=== PATIENT | male | born 1935 | race Caucasian/White ===

== ENCOUNTER → 2016-12-28 | Outpatient (CLI) | payer MEDICARE, OTHER | LOC: M WUC 09:43 | PROVIDERS: ATTEND Nurse Practitioner Women's Health | DX: R97.20 Elevated prostate specific antigen [PSA] (principal); E11.9 Type 2 diabetes mellitus without complications ==

== ENCOUNTER → 2016-12-28 | Outpatient (CLI) | payer MEDICARE, OTHER ==
[2016-12-28 13:35] LABS: MEAN CORPUSCULAR HEMOGLOBIN 32.1 pg (27.0-33.0); MEAN CORPUSCULAR HGB CONC 33.3 g/dl (32.0-36.5); MEAN CORPUSCULAR VOLUME 96.4 fl (80.0-96.0); RED CELL DISTRIBUTION WIDTH 13.4 % (11.5-14.5); WHITE BLOOD COUNT 6.1 K/mm3 (4.0-10.0)
[2016-12-28 13:52] LABS: ALBUMIN 3.5 GM/DL (3.2-5.2); ALBUMIN/GLOBULIN RATIO 1.03 (1.00-1.93); BILIRUBIN,TOTAL 0.7 MG/DL (0.2-1.0); CALCIUM LEVEL 9.5 MG/DL (8.8-10.2); CREATININE FOR GFR 1.5 MG/DL (0.70-1.30); GLOMERULAR FILTRATION RATE 47.7 (>35); TOTAL PROTEIN 6.9 GM/DL (6.4-8.2)
[2016-12-28 13:58] LABS: POTASSIUM SERUM 5.3 MEQ/L (3.5-5.1)
== END ==
LOC: M WUC 09:46
PROVIDERS: ATTEND Nurse Practitioner Adult Health
DX: E11.9 Type 2 diabetes mellitus without complications (principal)

== ENCOUNTER → 2017-10-11 | Outpatient (REF) | payer MEDICARE, OTHER ==
[2017-10-11 18:14] LABS: ESTIMATED AVERAGE GLUCOSE 180 MG/DL (60-110); HEMOGLOBIN A1c 7.9 %
[2017-10-11 18:28] LABS: ALBUMIN 3.5 GM/DL (3.2-5.2); ALKALINE PHOSPHATASE 73 U/L (45-117); ALT/SGPT 18 U/L (12-78); ANION GAP 4 MEQ/L (8-16); AST/SGOT 17 U/L (7-37); BILIRUBIN,TOTAL 0.4 MG/DL (0.2-1.0); BLOOD UREA NITROGEN 22 MG/DL (7-18); CALCIUM LEVEL 9.3 MG/DL (8.8-10.2); CARBON DIOXIDE LEVEL 28 MEQ/L (21-32); CHLORIDE LEVEL 106 MEQ/L (98-107); CHOLESTEROL LEVEL 142 MG/DL (<200); CHOLESTEROL RISK RATIO 3.155 (<5); CREATININE FOR GFR 1.57 MG/DL (0.70-1.30); GLOMERULAR FILTRATION RATE 45.1 (>35); GLUCOSE, FASTING 116 MG/DL (70-100); HDL CHOLESTEROL 45 MG/DL (>40); LDL CHOLESTEROL 66.4 MG/DL (<100); NON-HDL-C 97 MG/DL; POTASSIUM SERUM 5.1 MEQ/L (3.5-5.1); SODIUM LEVEL 138 MEQ/L (136-145); TOTAL PROTEIN 7.4 GM/DL (6.4-8.2); TRIGLYCERIDES LEVEL 153 MG/DL (<150)
[2017-10-11 19:22] LABS: MAU/CREAT RATIO 8.2 MCG/MG (0.0-30.0)
== END ==
LOC: M SFHCPLAZ 15:04
DX: E11.9 Type 2 diabetes mellitus without complications (principal); E78.00 Pure hypercholesterolemia, unspecified
CPT/HCPCS: 80053

== ENCOUNTER → 2018-01-04 | Outpatient (CLI) | payer MEDICARE ==
[2018-01-04 14:10] LABS: PROSTATIC SPECIFIC AG MONITOR 1.69 NG/ML (< 4.0)
== END ==
LOC: M WUC 08:34
DX: R97.20 Elevated prostate specific antigen [PSA] (principal)
CPT/HCPCS: 84153

== ENCOUNTER → 2018-04-14 | Outpatient (CLI) | payer MEDICARE, OTHER ==
[2018-04-14 13:33] LABS: ESTIMATED AVERAGE GLUCOSE 163 MG/DL (60-110); HEMOGLOBIN A1c 7.3 %
[2018-04-14 16:42] LABS: ALBUMIN 3.1 GM/DL (3.2-5.2); ALBUMIN/GLOBULIN RATIO 0.84 (1.00-1.93); ALKALINE PHOSPHATASE 78 U/L (45-117); ALT/SGPT 17 U/L (12-78); ANION GAP 10 MEQ/L (8-16); AST/SGOT 17 U/L (7-37); BILIRUBIN,TOTAL 0.8 MG/DL (0.2-1.0); BLOOD UREA NITROGEN 19 MG/DL (7-18); CALCIUM LEVEL 8.9 MG/DL (8.8-10.2); CARBON DIOXIDE LEVEL 24 MEQ/L (21-32); CHLORIDE LEVEL 104 MEQ/L (98-107); CHOLESTEROL LEVEL 117 MG/DL (<200); CREATININE FOR GFR 1.54 MG/DL (0.70-1.30); GLOMERULAR FILTRATION RATE 46.2 (>35); GLUCOSE, FASTING 102 MG/DL (70-100); HDL CHOLESTEROL 39 MG/DL (>40); LDL CHOLESTEROL 61 MG/DL (<100); NON-HDL-C 78 MG/DL; POTASSIUM SERUM 4.8 MEQ/L (3.5-5.1); SODIUM LEVEL 138 MEQ/L (136-145); TOTAL PROTEIN 6.8 GM/DL (6.4-8.2); TRIGLYCERIDES LEVEL 85 MG/DL (<150)
== END ==
LOC: M WUC 08:49
DX: E11.9 Type 2 diabetes mellitus without complications (principal); E78.00 Pure hypercholesterolemia, unspecified
CPT/HCPCS: 84443

== ENCOUNTER 2018-08-15 07:27 | Inpatient (IN) | payer MEDICARE, OTHER ==
[~2018-08-15] VITALS: Ht 180.3 cm; Wt 100.9 kg
[2018-08-15] MEDS ORDERED: FINA5TAB2 PO (07:49)
[2018-08-15] MEDS ORDERED: JANU50TA4 PO (07:49)
[2018-08-15] MEDS ORDERED: LOVA40TA PO (07:49)
[2018-08-15] MEDS ORDERED: HUMA75VL SC ×2 (07:49→10:23)
[2018-08-15] MEDS ORDERED: ACETAMINOPHEN 325 MG TAB PO ONE (08:00)
--- NOTE | 2018-08-15 08:43 | REP ---
Clinical: Cough and fever. Technique: AP and lateral. Findings: Mediastinum and cardiac silhouette are unremarkable. Lung powell demonstrate chronic-appearing changes. No focal consolidation, effusion, or pneumothorax. Skeletal structures demonstrate age-related changes. Impression: Chronic-appearing changes. No obvious acute cardiopulmonary process. Electronically Signed by Domingo Montgomery MD 08/15/2018 08:35 A
[2018-08-15 08:48] LABS: BASO % 0.2 % (0.0-1.0); HEMOGLOBIN 12.9 g/dl (13.5-17.5); LYMPH # 0.9 10^3/uL (1.5-4.5); LYMPH % 11.4 % (24.0-44.0); MEAN CORPUSCULAR HEMOGLOBIN 30.6 pg (27.0-33.0); MEAN CORPUSCULAR HGB CONC 33.1 g/dl (32.0-36.5); MEAN CORPUSCULAR VOLUME 92.6 fl (80.0-96.0); MONO # 1.4 10^3/uL (0.0-0.8); MONO % 16.7 % (0.0-5.0); NEUTROPHILS # 5.8 10^3/uL (1.8-7.7); NEUTROPHILS % 71.2 % (36.0-66.0); PLATELET COUNT, AUTOMATED 154 10^3/uL (150-450); RED BLOOD COUNT 4.21 10^6/uL (4.30-6.10); WHITE BLOOD COUNT 8.1 10^3/uL (4.0-10.0)
--- NOTE | 2018-08-15 08:48 | REP ---
CT Head without contrast HISTORY: Syncope COMPARISON: None Areas of decreased attenuation are present in the periventricular white matter. This represents small-vessel ischemic disease. There is no intraparenchymal hemorrhage, acute infarct, mass or midline shift. The ventricular system and cortical sulci are dilated consistent with minimal volume loss. There is no extra cerebral collection. There is no fracture. The visualized sinuses are clear. IMPRESSION: 1. Small vessel ischemic disease. 2. Minimal volume loss. Electronically Signed by Maxwell Macedo MD 08/15/2018 08:39 A
--- NOTE | 2018-08-15 08:53 | REP ---
CT cervical spine without contrast HISTORY: Syncope COMPARISON: None There is no acute fracture or subluxation. Disc bulges are present at the C3-4 and C4-5 levels. Disc bulges with associated osteophyte formation are present at the C5-6 and C6-7 levels. There is minimal to mild narrowing of the spinal canal. Uncinate process and/or facet hypertrophy are present at the C2-3 through C7-T1 levels. These findings produce minimal to moderate narrowing of the neural foramina. The C3-4 through C6-7 intervertebral discs are decreased in height consistent with disc degeneration. IMPRESSION: 1. There is no acute fracture or subluxation. 2. There is cervical spondylosis at the C2-3 through C7-T1 levels. Electronically Signed by Maxwell Macedo MD 08/15/2018 08:44 A
[2018-08-15 09:00] LABS: INR 1.13; PROTHROMBIN TIME 14.7 SECONDS (12.1-14.4)
[2018-08-15] MEDS: ENOXAPARIN 40 MG/0.4 ML SYRINGE (J1650) SC SCH (09:00)
[2018-08-15 09:16] LABS: CALCIUM LEVEL 8.5 MG/DL (8.8-10.2); CREATININE FOR GFR 1.76 MG/DL (0.70-1.30); GLOMERULAR FILTRATION RATE 39.6 (>35); INFLUENZA A AMPLIFICATION POSITIVE (NEGATIVE); INFLUENZA B AMPLIFICATION NEGATIVE (NEGATIVE); MAGNESIUM LEVEL 1.7 MG/DL (1.8-2.4); MB/CK RELATIVE INDEX 0.57 (< OR =4); POTASSIUM SERUM 4.7 MEQ/L (3.5-5.1); THYROID STIMULATING HORMONE 1.19 uIU/ML (0.358-3.740); TROPONIN I 0.02 NG/ML (< 0.10)
[2018-08-15] MEDS ORDERED: OSELTAMIVIR PHOSPHATE 75 MG CAP (TAMIFLU) PO ONE (09:30)
[2018-08-15] MEDS ORDERED: NS 1,000 ML IV SCH (09:45)
[2018-08-15] MEDS ORDERED: ACETAMINOPHEN TAB 650MG DOSE (2X325MG) PO PRN (10:15)
[2018-08-15] MEDS ORDERED: RAMI1CAP22 PO (10:23)
[2018-08-15] MEDS ORDERED: ASPI1TAB15 PO (10:23)
[2018-08-15] MEDS ORDERED: REFR1DRO8 OU (10:23)
[2018-08-15] MEDS ORDERED: FISH7.5C PO ×2 (10:23)
[2018-08-15] MEDS ORDERED: SITA50TAB PO (10:23)
[2018-08-15] MEDS ORDERED: VITMTA PO (10:23)
[2018-08-15] MEDS ORDERED: MAGN1TAB25 PO (10:23)
[2018-08-15] MEDS ORDERED: GLUCAGON FOR INJ 1 MG VIAL (J1610) SC PRN (10:30)
[2018-08-15] MEDS ORDERED: GLUCOSE 4 GM CHEW TABLET PO PRN (10:30)
[2018-08-15] MEDS ORDERED: DEXTROSE 50% 50 ML SYRINGE IV PRN (10:30)
[2018-08-15] MEDS ORDERED: MAG SULF 1GM/100ML (MAG RUN) 1 GM in APPROPRIATE DILUENT 1 EA IV ONE (11:00)
[2018-08-15 11:26] LABS: ALBUMIN 3.3 GM/DL (3.2-5.2); BILIRUBIN,DIRECT 0.2 MG/DL (0.0-0.2); BILIRUBIN,TOTAL 0.5 MG/DL (0.2-1.0); TOTAL PROTEIN 7.6 GM/DL (6.4-8.2)
[2018-08-15 12:29] VITALS: BP 143/67
[2018-08-15] MEDS: guaiFENesin ER 600 MG TAB PO SCH ×2 (13:12→20:29)
[2018-08-15] MEDS: NS 1,000 ML IV SCH (13:13)
[2018-08-15] MEDS: IBUPROFEN 400 MG TAB PO SCH ×2 (13:14→20:29)
[2018-08-15] MEDS: HumaLOG INSULIN (NovoLOG) PER UNIT SC SCH ×3 (13:14→20:30)
[2018-08-15 14:00] VITALS: BP 128/61
[2018-08-15] MEDS ORDERED: NS 1,000 ML IV ONE (15:00)
[2018-08-15 15:17] VITALS: BP_SYST 109; BP_SYST 120; BP_SYST 122; BP_DIAS 53; BP_DIAS 54; BP_DIAS 60
--- NOTE | 2018-08-15 16:06 | HPE ---
DATE OF ADMISSION: 08/15/2018 PRIMARY CARE PROVIDER: Miriam Gould NP MEDICATION TECHNICIAN: Dr. Jimenez CHIEF COMPLAINT: Cough and sore throat. HISTORY OF PRESENT ILLNESS: The patient is an 82-year-old man who lives alone. He is . His one year ago. He had been feeling in his usual state of health until Tuesday. He began to feel suddenly very weak and tired. He shortly thereafter developed a cough and sore throat. He tells me that he was sitting in his kitchen and had an episode where he felt so weak that he collapsed to the floor. He does not think that he lost his consciousness or that he was down for very long but can not provide me with any further details. He is able to tell me that prior to the episode he only felt weakness. He denies vertigo, palpitations, bowel or bladder incontinence. No associated or prodromal chest pressure or shortness of breath and he tells me that following the episode he went back to feeling his same ill state he has had for the last two days. He denies any knowledge of any sick contacts or recent travel. PAST MEDICAL HISTORY: 1. Type 2 diabetes. 2. Hypertension. 3. Chronic kidney disease. 4. Diverticulosis. 5. Benign prostatic hypertrophy (BPH). 6. Macular degeneration. ALLERGIES: No known drug allergies. HOME MEDICATIONS: - aspirin 81 mg daily - finasteride 5 mg daily - insulin 75/25 30 units subcutaneous daily - lovastatin - multivitamin one tablet daily - Losec 40 mg daily - [place]-3 polyunsaturated fatty acids, fish oil 3 grams daily - Januvia 50 mg daily - Refresh tears one drop in each eye at bedtime - magnesium oxide 400 mg by mouth twice a day - ramipril 2.5 mg daily FAMILY HISTORY: Noncontributory. REVIEW OF SYSTEMS: Negative other than in the history of present illness (HPI). PAST SURGICAL HISTORY: 1. Tonsillectomy in 1943. 2. Hernia repair in 1979. 3. Herniorrhaphy in 1984. 4. Ruptured appendix in 2007. 5. Ophthalmic surgery for macular degeneration in 2008. 6. Vasectomy. 7. Bilateral cataract extraction in 2011. SOCIAL HISTORY: He lives alone but has two friends who accompany him to the emergency room who are his neighbors who are very involved in his care. 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 OBJECTIVE: VITAL SIGNS: Maximum temperature (T-max) 101.3, temperature current 98.6, pulse 75, respiratory rate is 18, blood pressure 138/65, oxygen saturation 96% on room air. GENERAL: He is a very pleasant, elderly, man laying in a stretcher at a 30-degree angle. He appears tired but he is awake, alert and oriented times three, speaking in complete sentences, in no acute distress. He is not tachypneic. NEUROLOGIC: Cranial nerves II-XII are grossly intact. HEENT: He has mildly dry mucous membranes. No elevation in his central venous pressure (CVP). CARDIOVASCULAR: S1, S2. He is not tachycardiac. RESPIRATORY: Actually fairly clear bilaterally. ABDOMEN: Obese. Bowel sounds are present. The abdomen is soft. EXTREMITIES: No clubbing, cyanosis, or edema. LABORATORY STUDIES: WBC 8.1, hemoglobin 12.9, platelet count is 154. Chemistry Panel: Sodium 130, potassium 4.7, chloride 98, bicarbonate 24, BUN 25, creatinine 1.7, baseline appears to be close to 1.5, lactic acid 2.6, magnesium 1.7, CK is 192. A set of cardiac enzymes as well as his TSH are within normal limits. He has INR of 1.1. UA is fairly unremarkable. Microbiology: Blood cultures are drawn and pending. Influenza swab is positive for influenza A. He did have a CT scan of his head which reveals small vessel ischemic disease, minimal volume loss. He also had a cervical spine CT that revealed no acute fracture or subluxation. There was cervical spondylosis at C2-3 through C7-T1 levels. He did have a chest x-ray that revealed chronic-appearing changes. No obvious acute cardiopulmonary process. ASSESSMENT AND PLAN: This is an 82-year-old man with influenza A. 1. Influenza A. The patient did have a fall at home. The etiology is unclear. It does not sound to be chan syncope to me. There was no prodromal symptoms. No definite loss of consciousness. Although he may have been down on the ground due to weakness, he was able to rise himself and continue with his activities. There were no concerning prodromal symptoms. I will monitor him on telemetry for 24 hours. He does not have any focal deficits. He does not have any palpitations, chest pressure, or shortness of breath. His volume status appears to be definitely not overloaded. As such, I see no indication for an MRI or an echocardiogram. In terms of his influenza A, we will renally dose his Tamiflu and admit him for close observation. We will have physical therapy and occupational therapy evaluate him. 2. Hypovolemic hyponatremia. We will provide him IV fluids. He did have an elevated lactic acid which may be related to increased work of breathing. He is comfortable on room air. We will continue to trend his lactic acid and his hyponatremia with laboratories. 3. Hypomagnesemia. We will replete. 4. Elevated creatine kinase, possibly secondary to being down, possibly secondary to influenza with some muscle aches. We will provide him with gentle IV fluids and continue to monitor. 5. Anemia, very mild. I suspect this will drop somewhat with the fluid resuscitation he is to receive overnight. We will continue to monitor closely. I will also check orthostatics. 6. Chronic kidney disease, relatively stable. There may be some mild elevation today. We will monitor his laboratories tomorrow after he has received some fluids. 7. Benign prostatic hypertrophy (BPH). We will continue his home Flomax. 8. Hypertension. I will actually hold his ramipril for the time being and watch his blood pressure closely and reinitiate as needed. 9. Dyslipidemia. Continue with his Lopid. 10. Insulin-dependent diabetes. We will place him on his insulin 70/25 as well as sliding scale with fingerstick coverage. 11. Possible rhabdomyolysis 12. Lactic acidosis con't to trend as treatment procedes DISPOSITION: The patient is admitted to the medical/surgical floor with remote telemetry. We will continue to follow his status closely. KELSIE
[2018-08-15] MEDS: MULTIVITAMINS/MINERALS THERAP 1 TAB PO SCH (17:32)
[2018-08-15] MEDS: FINASTERIDE 5 MG TAB PO SCH (17:32)
[2018-08-15] MEDS: ASPIRIN 81 MG ENTERIC TAB PO SCH (17:32)
[2018-08-15] MEDS: SIMVASTATIN 40 MG TAB PO SCH (20:29)
[2018-08-15] MEDS: OSELTAMIVIR PHOSPHATE 30MG CAPSULE PO SCH (20:29)
[2018-08-15 20:30] VITALS: BP_SYST 116; BP_SYST 120; BP_SYST 126; BP_DIAS 56; BP_DIAS 60; BP_DIAS 64
[2018-08-15] MEDS: OMEGA-3 1000MG CAPSULE PO SCH (21:36)
[2018-08-15 22:00] VITALS: BP 145/59
[2018-08-16] MEDS: IBUPROFEN 400 MG TAB PO SCH ×3 (05:40→21:48)
[2018-08-16 06:00] VITALS: BP 155/62
[2018-08-16 06:13] VITALS: BP_SYST 148; BP_SYST 152; BP_SYST 155; BP_DIAS 60; BP_DIAS 62
[2018-08-16 06:24] LABS: HEMATOCRIT 37.6 % (42.0-52.0); HEMOGLOBIN 12.1 g/dl (13.5-17.5); MEAN CORPUSCULAR HEMOGLOBIN 29.9 pg (27.0-33.0); MEAN CORPUSCULAR HGB CONC 32.2 g/dl (32.0-36.5); MEAN CORPUSCULAR VOLUME 92.8 fl (80.0-96.0); PLATELET COUNT, AUTOMATED 126 10^3/uL (150-450); RED BLOOD COUNT 4.05 10^6/uL (4.30-6.10); WHITE BLOOD COUNT 8.5 10^3/uL (4.0-10.0)
[2018-08-16 07:17] LABS: CALCIUM LEVEL 8.2 MG/DL (8.8-10.2); CREATININE FOR GFR 1.55 MG/DL (0.70-1.30); GLOMERULAR FILTRATION RATE 45.8 (>35); POTASSIUM SERUM 4.6 MEQ/L (3.5-5.1)
[2018-08-16 07:42] LABS: MAGNESIUM LEVEL 1.9 MG/DL (1.8-2.4)
[2018-08-16] MEDS: ENOXAPARIN 40 MG/0.4 ML SYRINGE (J1650) SC SCH (09:06)
[2018-08-16] MEDS: guaiFENesin ER 600 MG TAB PO SCH ×2 (09:06→21:48)
[2018-08-16] MEDS: OSELTAMIVIR PHOSPHATE 30MG CAPSULE PO SCH ×2 (09:06→21:48)
[2018-08-16] MEDS: MULTIVITAMINS/MINERALS THERAP 1 TAB PO SCH (09:06)
[2018-08-16] MEDS: OMEGA-3 1000MG CAPSULE PO SCH ×2 (09:06→21:48)
[2018-08-16] MEDS: FINASTERIDE 5 MG TAB PO SCH (09:06)
[2018-08-16] MEDS: ASPIRIN 81 MG ENTERIC TAB PO SCH (09:06)
[2018-08-16] MEDS: HumaLOG 75/25 MIX INSULIN PER UNIT SC SCH (09:07)
[2018-08-16] MEDS: HumaLOG INSULIN (NovoLOG) PER UNIT SC SCH ×4 (09:08→21:00)
[2018-08-16] MEDS ORDERED: MAG SULF 1GM/100ML (MAG RUN) 1 GM in APPROPRIATE DILUENT 1 EA IV ONE (11:15)
[2018-08-16 11:42] VITALS: BP 135/66
[2018-08-16 14:00] VITALS: BP 143/62
[2018-08-16] MEDS: NS 1,000 ML IV SCH (14:18)
--- NOTE | 2018-08-16 16:25 | IPNPDOC ---
Date Seen The patient was seen on 08/16/18. Progress Note SUBJECTIVE: Patient tells me that he feels better and his energy level is up but certainly nowhere near his baseline OBJECTIVE PHYSICAL EXAMINATION: VITAL SIGNS: Please see below. GENERAL: Pleasant elderly man sitting in a chair he appears more energetic today no acute distress HEENT: Cranial nerves II through XII grossly intact CARDIOVASCULAR: S1-S2 regular. RESPIRATORY: Clear to auscultation bilaterally. ABDOMINAL: Obese bowel sounds present abdomen soft EXTREMITIES: No clubbing cyanosis or edema LABORATORY DATA, IMAGING STUDIES, MICROBIOLOGY: Please see below. DVT prophylaxis ordered?: Lovenox ASSESSMENT AND PLAN: This is an 82-year-old man with influenza A. 1. Influenza A. The patient did have a fall at home. The etiology is unclear the patient does have some NSVT on his telemetry continue to monitor closely. Although he may have been down on the ground due to weakness, he was able to rise himself and continue with his activities. There were no concerning prodromal symptoms. In terms of his influenza A, we will renally dose his Tamiflu and admit him for close observation. We will have physical therapy and occupational therapy continue to work with him he is currently not safe 2. Hypovolemic hyponatremia. We will provide him IV fluids does appear to be improving with gentle hydration. He did have an elevated lactic acid which may be related to increased work of breathing. He is comfortable on room air once again today. 3. Hypomagnesemia. We will replete as needed. 4. Elevated creatine kinase, possibly secondary to being down, possibly se condary to influenza with some muscle aches. We will continue to provide him with gentle IV fluids and continue to monitor. 5. Anemia, : stable and mild. 6. Chronic kidney disease, there may have been some mild elevation in his creatinine upon admission it does appear to be improving with gentle hydration as well s. 7. Benign prostatic hypertrophy (BPH). We will continue his home Flomax. 8. Hypertension. I will hold his ramipril for the time being and watch his blood pressure closely and reinitiate as needed. 9. Dyslipidemia. Continue with his Lopid. 10. Insulin-dependent diabetes. We will place him on his insulin 70/25 as well as sliding scale with fingerstick coverage. DISPOSITION: The patient is admitted to the medical/surgical floor with remote telemetry. We will continue to follow his status closely. VS, I&O, 24H, Fishbone Vital Signs/I&O Vital Signs Date Time Temp Pulse Resp B/P (MAP) Pulse Ox O2 Delivery O2 Flow Rate FiO2 08/16/18 14:00 97.8 69 20 143/62 (89) 95 08/15/18 12:00 Room Air I&O- Last 24 Hours up to 6 AM 08/16/18 06:00 Intake Total 2050 ml Output Total 1200 ml Balance 850 ml Laboratory Data 24H LABS Laboratory Tests 2 08/15/18 17:18: Bedside Glucose (Misc Panel) 209H 08/16/18 05:45: Nucleated Red Blood Cells % (auto) 0.0, Anion Gap 7L, Glomerular Filtration Rate 45.8, Blood Urea Nitrogen 29H, Creatinine 1.55H, Sodium Level 132L, Potassium Level 4.6, Chloride Level 101, Carbon Dioxide Level 24, Calcium Level 8.2L, Magnesium Level 1.9, Total Creatine Kinase 1567#H 08/16/18 11:48: Bedside Glucose (Misc Panel) 161H CBC/BMP Laboratory Tests 08/16/18 05:45 Red Blood Count 4.05 L, Mean Corpuscular Volume 92.8, Mean Corpuscular Hemoglobin 29.9, Mean Corpuscular Hemoglobin Concent 32.2, Red Cell Distribution Width 13.0, Calcium Level 8.2 L Microbiology Microbiology 08/15/18 Blood Culture - Preliminary, Resulted No growth after 24 hours . All specim... 08/15/18 Blood Culture - Preliminary, Resulted No growth after 24 hours . All specim... ANDRES LOPEZ MD Aug 16, 2018 16:25
--- NOTE | 2018-08-16 20:26 | ECGEPIP ---
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
[2018-08-16] MEDS: SIMVASTATIN 40 MG TAB PO SCH (21:48)
--- NOTE | 2018-08-16 21:58 | ECGEPIP ---
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 Left axis deviation Low voltages with persistent R waves V5 and V6, and QS inferiorly; Body habitus versus pulmonary disease. R/O prior IWMI No change from 08/15/18 Electronically Signed On 08-16-2018 21:58:21 EST by Jewel Schmid
[2018-08-16 22:00] VITALS: BP 163/82
[2018-08-17] MEDS: IBUPROFEN 400 MG TAB PO SCH (05:38)
[2018-08-17 06:00] VITALS: BP 139/65
[2018-08-17 06:22] LABS: HEMATOCRIT 33.7 % (42.0-52.0); HEMOGLOBIN 11.3 g/dl (13.5-17.5); MEAN CORPUSCULAR HEMOGLOBIN 30.4 pg (27.0-33.0); MEAN CORPUSCULAR HGB CONC 33.5 g/dl (32.0-36.5); MEAN CORPUSCULAR VOLUME 90.6 fl (80.0-96.0); PLATELET COUNT, AUTOMATED 126 10^3/uL (150-450); RED BLOOD COUNT 3.72 10^6/uL (4.30-6.10); WHITE BLOOD COUNT 5.1 10^3/uL (4.0-10.0)
[2018-08-17 06:57] LABS: CALCIUM LEVEL 7.7 MG/DL (8.8-10.2); CREATININE FOR GFR 1.36 MG/DL (0.70-1.30); GLOMERULAR FILTRATION RATE 53.3 (>35)
[2018-08-17] MEDS: ENOXAPARIN 40 MG/0.4 ML SYRINGE (J1650) SC SCH (09:37)
[2018-08-17] MEDS: ASPIRIN 81 MG ENTERIC TAB PO SCH (09:38)
[2018-08-17] MEDS: OMEGA-3 1000MG CAPSULE PO SCH ×2 (09:38→21:35)
[2018-08-17] MEDS: HumaLOG INSULIN (NovoLOG) PER UNIT SC SCH ×4 (09:38→21:00)
[2018-08-17] MEDS: OSELTAMIVIR PHOSPHATE 30MG CAPSULE PO SCH ×2 (09:38→21:35)
[2018-08-17] MEDS: MULTIVITAMINS/MINERALS THERAP 1 TAB PO SCH (09:38)
[2018-08-17] MEDS: guaiFENesin ER 600 MG TAB PO SCH ×2 (09:38→21:35)
[2018-08-17] MEDS: FINASTERIDE 5 MG TAB PO SCH (09:38)
[2018-08-17] MEDS: HumaLOG 75/25 MIX INSULIN PER UNIT SC SCH (09:39)
[2018-08-17] MEDS: ACETAMINOPHEN 500 MG TAB PO SCH ×3 (09:43→21:35)
[2018-08-17] MEDS ORDERED: BENZONATATE 100 MG CAP PO PRN (10:00)
[2018-08-17] MEDS ORDERED: LEVALBUTEROL 1.25 MG/0.5 ML CONCENTRATE NEB INH PRN (10:00)
[2018-08-17 14:00] VITALS: BP 145/70
--- NOTE | 2018-08-17 17:39 | IPNPDOC ---
Text Note Date of Service The patient was seen on 08/17/18. NOTE SUBJECTIVE: Patient is seen and examined at bedside. He states that he feels much better than the day he was admitted. He still feels like he has some wheezing, but overall feels like he has more energy. He does still have some muscle weakness, but denies any fevers, chills, nausea, vomiting, diarrhea. OBJECTIVE VITAL SIGNS: Please see below. GENERAL: Pleasant, elderly male in no acute distress. He is sitting up in a chair. HEENT: Atraumatic, normocephalic. Mucous members are moist. Heart: Regular rate and rhythm; no murmurs, gallops, or rubs RESPIRATORY: Coarse breath sounds bilaterally with mild expiratory wheezes. No rhonchi or rales ABDOMINAL: Obese, positive bowel sounds, soft, no tenderness to palpation. EXTREMITIES: No clubbing cyanosis or edema LABORATORY DATA, IMAGING STUDIES, MICROBIOLOGY: Please see below. DVT prophylaxis ordered?: Lovenox ASSESSMENT AND PLAN: This is an 82-year-old man with influenza A. 1. Influenza A. The patient did have a fall at home. The etiology is unclear the patient does have some NSVT on his telemetry continue to monitor closely. Although he may have been down on the ground due to weakness, he was able to rise himself and continue with his activities. There were no concerning prodromal symptoms. In terms of his influenza A, his Tamiflu is renally dosed, and he is on day #3 of 5. Continues to work with physical and occupational therapy 2. Hypovolemic hyponatremia. We will provide him IV fluids does appear to be improving with gentle hydration. He did have an elevated lactic acid which may be related to increased work of breathing. He is comfortable on room air once again today. Hyponatremia has resolved. 3. Hypomagnesemia. We will replete as needed. 4. Elevated creatine kinase, possibly secondary to being down, possibly secondary to influenza with some muscle aches. We will continue to provide him with gentle IV fluids and continue to monitor. 5. Anemia, stable and mild. 6. Chronic kidney disease, there may have been some mild elevation in his creatinine upon admission it does appear to be improving with gentle hydration as well. 7. Benign prostatic hypertrophy (BPH). We will continue his home Flomax. 8. Hypertension. I will hold his ramipril for the time being and watch his blood pressure closely and reinitiate as needed. 9. Dyslipidemia. Continue with his statin. 10. Insulin-dependent diabetes. We will place him on his insulin 70/25 as well as sliding scale with fingerstick coverage. DISPOSITION: Probable discharge in 24-48 hours, pending clinical improvement and PT/OT VS,Fishbone, I+O VS, Fishbone, I+O Laboratory Tests 08/17/18 05:54 Red Blood Count 3.72 L, Mean Corpuscular Volume 90.6, Mean Corpuscular Hemoglobin 30.4, Mean Corpuscular Hemoglobin Concent 33.5, Red Cell Distribution Width 13.1, Calcium Level 7.7 L Vital Signs Date Time Temp Pulse Resp B/P (MAP) Pulse Ox O2 Delivery O2 Flow Rate FiO2 08/17/18 14:00 98.1 66 18 145/70 (95) 98 08/15/18 12:00 Room Air I&O- Last 24 Hours up to 6 AM 08/17/18 06:00 Intake Total 3220 ml Output Total 2475 ml Balance 745 ml GME ATTESTATION GME ATTESTATION My faculty preceptor for this patient encounter was physically present during t he encounter and was fully available. All aspects of the patient interview, examination, medical decision making process, and medical care plan development were reviewed and approved by the faculty preceptor. The faculty preceptor is aware and concurs with the plan as stated in the body of this note and will attest to such by his/her cosignature. NETO MELVIN DO Aug 17, 2018 17:39
[2018-08-17] MEDS: SIMVASTATIN 40 MG TAB PO SCH (21:35)
[2018-08-17 22:00] VITALS: BP 133/71
[2018-08-18] MEDS: ACETAMINOPHEN 500 MG TAB PO SCH ×3 (05:49→20:26)
[2018-08-18 06:00] VITALS: BP 146/77
[2018-08-18 06:40] LABS: HEMATOCRIT 35.7 % (42.0-52.0); HEMOGLOBIN 11.8 g/dl (13.5-17.5); MEAN CORPUSCULAR HEMOGLOBIN 30.5 pg (27.0-33.0); MEAN CORPUSCULAR HGB CONC 33.1 g/dl (32.0-36.5); MEAN CORPUSCULAR VOLUME 92.2 fl (80.0-96.0); PLATELET COUNT, AUTOMATED 142 10^3/uL (150-450); RED BLOOD COUNT 3.87 10^6/uL (4.30-6.10); WHITE BLOOD COUNT 4.8 10^3/uL (4.0-10.0)
[2018-08-18 07:04] LABS: CALCIUM LEVEL 8.1 MG/DL (8.8-10.2); CREATININE FOR GFR 1.28 MG/DL (0.70-1.30); GLOMERULAR FILTRATION RATE 57.1 (>35); POTASSIUM SERUM 4.5 MEQ/L (3.5-5.1)
[2018-08-18] MEDS: HumaLOG INSULIN (NovoLOG) PER UNIT SC SCH ×4 (07:30→20:27)
[2018-08-18] MEDS: guaiFENesin ER 600 MG TAB PO SCH ×2 (09:00→20:27)
[2018-08-18] MEDS: ASPIRIN 81 MG ENTERIC TAB PO SCH (09:00)
[2018-08-18] MEDS: ENOXAPARIN 40 MG/0.4 ML SYRINGE (J1650) SC SCH (09:01)
[2018-08-18] MEDS: MULTIVITAMINS/MINERALS THERAP 1 TAB PO SCH (09:01)
[2018-08-18] MEDS: OSELTAMIVIR PHOSPHATE 30MG CAPSULE PO SCH ×2 (09:01→20:26)
[2018-08-18] MEDS: FINASTERIDE 5 MG TAB PO SCH (09:01)
[2018-08-18] MEDS: HumaLOG 75/25 MIX INSULIN PER UNIT SC SCH (12:00)
[2018-08-18] MEDS: OMEGA-3 1000MG CAPSULE PO SCH ×2 (12:08→20:26)
[2018-08-18] MEDS: BENZONATATE 100 MG CAP PO SCH ×3 (12:08→20:26)
[2018-08-18 14:00] VITALS: BP 149/79
--- NOTE | 2018-08-18 15:16 | IPNPDOC ---
Text Note Date of Service The patient was seen on 08/18/18. NOTE SUBJECTIVE: Patient is seen and examined at bedside. He states that he has been working well with physical therapy, though he has not attempted stairs yet. He denies any fever, chills, nausea, vomiting, diarrhea, cough, or shortness of breath. He did not sleep well last night, and is requesting that I schedule his cough medicine instead of giving it to him as needed. OBJECTIVE VITAL SIGNS: Please see below. GENERAL: Pleasant, elderly male in no acute distress. He is sitting up in a chair. HEENT: Atraumatic, normocephalic. Mucous members are moist. Heart: Regular rate and rhythm; no murmurs, gallops, or rubs RESPIRATORY: Minimally coarse breath sounds bilaterally with mild expiratory wheezes. No rhonchi or rales ABDOMINAL: Obese, positive bowel sounds, soft, no tenderness to palpation. EXTREMITIES: No clubbing cyanosis or edema LABORATORY DATA, IMAGING STUDIES, MICROBIOLOGY: Please see below. DVT prophylaxis ordered?: Lovenox ASSESSMENT AND PLAN: This is an 82-year-old man with influenza A. 1. Influenza A. The patient did have a fall at home. The etiology is unclear the patient does have some NSVT on his telemetry continue to monitor closely. Although he may have been down on the ground due to weakness, he was able to rise himself and continue with his activities. There were no concerning prodromal symptoms. In terms of his influenza A, his Tamiflu is renally dosed, and he is on day #4 of 5. Continues to work with physical and occupational therapy 2. Hypovolemic hyponatremia. We will provide him IV fluids does appear to be improving with gentle hydration. He did have an elevated lactic acid which may be related to increased work of breathing. He is comfortable on room air once again today. Hyponatremia has resolved. 3. Hypomagnesemia. We will replete as needed. 4. Elevated creatine kinase, possibly secondary to being down, possibly secondary to influenza with some muscle aches. This is trending downward. 5. Anemia, stable and mild. 6. Chronic kidney disease, there may have been some mild elevation in his creat inine upon admission it does appear to be improving. 7. Benign prostatic hypertrophy (BPH). We will continue his home Flomax. 8. Hypertension. I will hold his ramipril for the time being and watch his blood pressure closely and reinitiate as needed. 9. Dyslipidemia. Continue with his statin. 10. Insulin-dependent diabetes. We will place him on his insulin 70/25 as well as sliding scale with fingerstick coverage. DISPOSITION: Possible discharge on Tuesday, pending clinical improvement and PT/OT VS,Fishbone, I+O VS, Fishbone, I+O Laboratory Tests 08/18/18 05:55 Red Blood Count 3.87 L, Mean Corpuscular Volume 92.2, Mean Corpuscular Hemoglobi n 30.5, Mean Corpuscular Hemoglobin Concent 33.1, Red Cell Distribution Width 13.0, Calcium Level 8.1 L Vital Signs Date Time Temp Pulse Resp B/P (MAP) Pulse Ox O2 Delivery O2 Flow Rate FiO2 08/18/18 14:00 98.2 68 20 149/79 (102) 97 08/15/18 12:00 Room Air l I&O- Last 24 Hours up to 6 AM 08/18/18 06:00 Intake Total 2365 ml Output Total 1575 ml Balance 790 ml GME ATTESTATION GME ATTESTATION My faculty preceptor for this patient encounter was physically present during the encounter and was fully available. All aspects of the patient interview, examination, medical decision making process, and medical care plan development were reviewed and approved by the faculty preceptor. The faculty preceptor is aware and concurs with the plan as stated in the body of this note and will atte st to such by his/her cosignature. NETO MELVIN DO Aug 18, 2018 15:16
[2018-08-18] MEDS: LEVALBUTEROL 1.25 MG/0.5 ML CONCENTRATE NEB INH SCH ×3 (16:00→23:46)
[2018-08-18] MEDS: SIMVASTATIN 40 MG TAB PO SCH (20:26)
[2018-08-18 22:00] VITALS: BP 117/59
--- NOTE | 2018-08-18 23:55 | ECHO ---
DATE OF PROCEDURE: 08/16/2018 DATE OF : 1935 AGE: 82 REFERRING PROVIDER: Dr. Ella Rios PATIENT LOCATION: Room 4220 REASON FOR THE ECHOCARDIOGRAM: Abnormal EKG. 2D COMMENTS: 1. Normal left ventricular size, wall thickness, and normal global left ventricular systolic function. The estimated left ventricular systolic ejection fraction is 60-65%. 2. Normal left atrium. The right atrium and the right ventricle were not well visualized. 3. The atrial septum appeared to be normal in limited views. 4. Normal aortic root. 5. Small pericardial effusion noted, no evidence of cardiac tamponade. 6. Mildly calcified aortic valve with normal leaflet excursion. Mildly calcified mitral annulus with normal anterior mitral valve leaflet motion. Normal tricuspid valve. The pulmonic valve appeared to be normal. The proximal pulmonary artery branches were not well visualized. 7. The inferior vena cava was mildly enlarged, central venous pressure might be elevated. DOPPLER: No significant valvular abnormalities detected. Abnormal relaxation pattern was noted across the mitral valve leaflet consistent with features of grade 1 left ventricular diastolic dysfunction. IMPRESSION: 1. Normal global left ventricular systolic function. There were some features of left ventricular diastolic dysfunction manifested by abnormal relaxation. 2. Small pericardial effusion, no evidence of cardiac tamponade. 3. There are features of elevated central venous pressure, the inferior vena cava was mildly enlarged. 4. The right heart chambers were not well visualized.
[2018-08-19] MEDS: LEVALBUTEROL 1.25 MG/0.5 ML CONCENTRATE NEB INH SCH ×5 (04:47→20:29)
[2018-08-19] MEDS: ACETAMINOPHEN 500 MG TAB PO SCH ×3 (05:20→20:50)
[2018-08-19 06:00] VITALS: BP 141/65
[2018-08-19 06:23] LABS: HEMATOCRIT 34.3 % (42.0-52.0); HEMOGLOBIN 11.3 g/dl (13.5-17.5); MEAN CORPUSCULAR HEMOGLOBIN 30.1 pg (27.0-33.0); MEAN CORPUSCULAR HGB CONC 32.9 g/dl (32.0-36.5); MEAN CORPUSCULAR VOLUME 91.5 fl (80.0-96.0); PLATELET COUNT, AUTOMATED 138 10^3/uL (150-450); RED BLOOD COUNT 3.75 10^6/uL (4.30-6.10); WHITE BLOOD COUNT 5.6 10^3/uL (4.0-10.0)
[2018-08-19 06:47] LABS: CALCIUM LEVEL 8.1 MG/DL (8.8-10.2); CREATININE FOR GFR 1.28 MG/DL (0.70-1.30); GLOMERULAR FILTRATION RATE 57.1 (>35); POTASSIUM SERUM 4.2 MEQ/L (3.5-5.1)
[2018-08-19] MEDS: HumaLOG INSULIN (NovoLOG) PER UNIT SC SCH ×4 (10:30→20:50)
[2018-08-19] MEDS: FINASTERIDE 5 MG TAB PO SCH (10:30)
[2018-08-19] MEDS: ASPIRIN 81 MG ENTERIC TAB PO SCH (10:30)
[2018-08-19] MEDS: HumaLOG 75/25 MIX INSULIN PER UNIT SC SCH (10:30)
[2018-08-19] MEDS: guaiFENesin ER 600 MG TAB PO SCH ×2 (10:30→20:49)
[2018-08-19] MEDS: BENZONATATE 100 MG CAP PO SCH ×3 (10:30→20:49)
[2018-08-19] MEDS: OSELTAMIVIR PHOSPHATE 30MG CAPSULE PO SCH ×2 (10:30→20:49)
[2018-08-19] MEDS: MULTIVITAMINS/MINERALS THERAP 1 TAB PO SCH (10:30)
[2018-08-19] MEDS: ENOXAPARIN 40 MG/0.4 ML SYRINGE (J1650) SC SCH (10:30)
[2018-08-19] MEDS: OMEGA-3 1000MG CAPSULE PO SCH ×2 (10:30→20:49)
[2018-08-19 14:00] VITALS: BP 144/65
--- NOTE | 2018-08-19 14:01 | IPNPDOC ---
Text Note Date of Service The patient was seen on 08/19/18. NOTE SUBJECTIVE: Patient is seen and examined at bedside. He is a little more tired today, and had some dizziness overnight, though he slept a lot better with the nebulizer treatments and the Tessalon Perles. He denies any fever, chills, nausea, vomiting, diarrhea, cough, or shortness of breath. OBJECTIVE VITAL SIGNS: Please see below. GENERAL: Pleasant, elderly male in no acute distress. He is sitting up in a chair. HEENT: Atraumatic, normocephalic. Mucous members are moist. Heart: Regular rate and rhythm; no murmurs, gallops, or rubs RESPIRATORY: Minimally coarse breath sounds bilaterally with mild expiratory wheezes. No rhonchi or rales ABDOMINAL: Obese, positive bowel sounds, soft, no tenderness to palpation. EXTREMITIES: No clubbing cyanosis or edema LABORATORY DATA, IMAGING STUDIES, MICROBIOLOGY: Please see below. DVT prophylaxis ordered?: Lovenox ASSESSMENT AND PLAN: This is an 82-year-old man with influenza A. 1. Influenza A. The patient did have a fall at home. The etiology is unclear the patient does have some NSVT on his telemetry continue to monitor closely. Although he may have been down on the ground due to weakness, he was able to ri se himself and continue with his activities. There were no concerning prodromal symptoms. In terms of his influenza A, his Tamiflu is renally dosed, and he is on his last day. He will continue to work with physical and occupational therapy on Tuesday. Dizziness overnight could be related to both the influenza and Tamiflu. His last Tamiflu this today, so we will see if he improves tomorrow. 2. Hypovolemic hyponatremia. We will provide him IV fluids does appear to be improving with gentle hydration. He did have an elevated lactic acid which may be related to increased work of breathing. He is comfortable on room air once again today. Hyponatremia has resolved. 3. Hypomagnesemia. We will replete as needed. 4. Elevated creatine kinase, possibly secondary to being down, possibly secondary to influenza with some muscle aches. This is trending downward. 5. Anemia, stable and mild. 6. Chronic kidney disease, there may have been some mild elevation in his creatinine upon admission it does appear to be improving. 7. Benign prostatic hypertrophy (BPH). We will continue his home Flomax. 8. Hypertension. I will hold his ramipril for the time being and watch his blood pressure closely and reinitiate as needed. 9. Dyslipidemia. Continue with his statin. 10. Insulin-dependent diabetes. We will place him on his insulin 70/25 as well as sliding scale with fingerstick coverage. DISPOSITION: Possible discharge on Tuesday, pending clinical improvement and PT/OT VS,Fishbone, I+O VS, Fishbone, I+O Laboratory Tests 08/19/18 05:56 Red Blood Count 3.75 L, Mean Corpuscular Volume 91.5, Mean Corpuscular Hemoglobin 30.1, Mean Corpuscular Hemoglobin Concent 32.9, Red Cell Distribution Width 12.8, Calcium Level 8.1 L Vital Signs Date Time Temp Pulse Resp B/P (MAP) Pulse Ox O2 Delivery O2 Flow Rate FiO2 08/19/18 06:00 98.2 73 18 141/65 (90) 96 08/15/18 12:00 Room Air I&O- Last 24 Hours up to 6 AM 08/19/18 06:00 Intake Total 1200 ml Output Total 1450 ml Balance -250 ml GME ATTESTATION GME ATTESTATION My faculty preceptor for this patient encounter was physically present during the encounter and was fully available. All aspects of the patient interview, examination, medical decision making process, and medical care plan development were reviewed and approved by the faculty preceptor. The faculty preceptor is aware and concurs with the plan as stated in the body of this note and will attest to such by his/her cosignature. NETO MELVIN DO Aug 19, 2018 14:01
[2018-08-19] MEDS: SIMVASTATIN 40 MG TAB PO SCH (20:49)
[2018-08-19 22:00] VITALS: BP 150/72
[2018-08-20] MEDS: LEVALBUTEROL 1.25 MG/0.5 ML CONCENTRATE NEB INH SCH ×6 (03:05→19:19)
[2018-08-20] MEDS: ACETAMINOPHEN 500 MG TAB PO SCH ×3 (05:33→21:02)
[2018-08-20 06:00] VITALS: BP 139/65
[2018-08-20 06:20] LABS: HEMATOCRIT 33.6 % (42.0-52.0); MEAN CORPUSCULAR HEMOGLOBIN 29.8 pg (27.0-33.0); MEAN CORPUSCULAR HGB CONC 32.7 g/dl (32.0-36.5); MEAN CORPUSCULAR VOLUME 91.1 fl (80.0-96.0); PLATELET COUNT, AUTOMATED 139 10^3/uL (150-450); RED BLOOD COUNT 3.69 10^6/uL (4.30-6.10); WHITE BLOOD COUNT 5.2 10^3/uL (4.0-10.0)
[2018-08-20 06:57] LABS: CALCIUM LEVEL 8.2 MG/DL (8.8-10.2); CREATININE FOR GFR 1.26 MG/DL (0.70-1.30); GLOMERULAR FILTRATION RATE 58.2 (>35); POTASSIUM SERUM 4.6 MEQ/L (3.5-5.1)
[2018-08-20] MEDS: OSELTAMIVIR PHOSPHATE 30MG CAPSULE PO SCH (09:00)
[2018-08-20] MEDS: ENOXAPARIN 40 MG/0.4 ML SYRINGE (J1650) SC SCH (09:00)
[2018-08-20] MEDS: guaiFENesin ER 600 MG TAB PO SCH ×2 (09:00→21:02)
[2018-08-20] MEDS: OMEGA-3 1000MG CAPSULE PO SCH ×2 (09:00→21:02)
[2018-08-20] MEDS: BENZONATATE 100 MG CAP PO SCH ×3 (09:00→21:02)
[2018-08-20] MEDS: ASPIRIN 81 MG ENTERIC TAB PO SCH (09:00)
[2018-08-20] MEDS: MULTIVITAMINS/MINERALS THERAP 1 TAB PO SCH (09:00)
[2018-08-20] MEDS: HumaLOG INSULIN (NovoLOG) PER UNIT SC SCH ×4 (09:30→21:00)
[2018-08-20] MEDS: HumaLOG 75/25 MIX INSULIN PER UNIT SC SCH (09:30)
[2018-08-20] MEDS: FINASTERIDE 5 MG TAB PO SCH (09:33)
[2018-08-20] MEDS ORDERED: DEXTROMETHORPHAN 60MG/10ML SUSP 90ML BTL(DELSYM) PO PRN (12:00)
--- NOTE | 2018-08-20 12:07 | IPNPDOC ---
Text Note Date of Service The patient was seen on 08/20/18. NOTE SUBJECTIVE: Patient is seen and examined at bedside. Complained of increased cough last night. Also that the room was very warm. He was noted to have low grade temp of 100.4 last night. He did walk 3 times yesterday the whole loop of the [place] with AIds and visitors. He feels his legs are stronger. Di did not get much sleep because of the bouts of coughing. OBJECTIVE VITAL SIGNS: Please see below. GENERAL: Pleasant, elderly male in no acute distress. He is sitting up in a chair. HEENT: Atraumatic, normocephalic. Mucous members are moist. Heart: Regular rate and rhythm; no murmurs, gallops, or rubs RESPIRATORY: Minimally coarse breath sounds bilaterally with mild expiratory wheezes. No rhonchi or rales ABDOMINAL: Obese, positive bowel sounds, soft, no tenderness to palpation. EXTREMITIES: No clubbing cyanosis or edema LABORATORY DATA, IMAGING STUDIES, MICROBIOLOGY: Please see below. DVT prophylaxis ordered?: Lovenox ASSESSMENT AND PLAN: This is an 82-year-old man with influenza A. Influenza A. The patient did have a fall at home due to extreme weakness from the influenza. He was initially monitored on TELE and did not have any major events. finished course of Tamiflu Diastolic Dysfunction in echo and possibly elevated central venous pressure. Possibly have mild diastolic chf exacerbation Has cumulative positive balance of 3000ml and his creatinine is below baseline. Pateint may be retaining some fluids. in view of increased cough will give a dose of lasix Hypovolemic hyponatremia. due to dehydration on admission now resolved. Hypomagnesemia. We will replete as needed. Rhabdomyolysis: possibly secondary to being down and secondary to influenza with some muscle aches. resolved. Anemia, stable and mild. Chronic kidney disease stage 3 creatinine better than baseline which leads me to think pateint may be retaining fluids. will give a dose of lasix. Benign prostatic hypertrophy (BPH). We will continue his home Finasteride Hypertension. Bps now rising will restart Ramipril Dyslipidemia. Continue with his statin and fish oil. Insulin-dependent diabetes. We will place him on his own lispro protamine insuli n 70/25 as well as sliding scale with fingerstick coverage. DISPOSITION: Possible discharge on Tuesday, pending clinical improvement and PT/OT VS,Fishbone, I+O VS, Fishbone, I+O Laboratory Tests 08/20/18 06:06 Red Blood Count 3.69 L, Mean Corpuscular Volume 91.1, Mean Corpuscular Hemoglobin 29.8, Mean Corpuscular Hemoglobin Concent 32.7, Red Cell Distribution Width 12.9, Calcium Level 8.2 L Vital Signs Date Time Temp Pulse Resp B/P (MAP) Pulse Ox O2 Delivery O2 Flow Rate FiO2 08/20/18 07:43 100.3 08/20/18 06:00 82 18 139/65 (89) 99 08/15/18 12:00 Room Air I&O- Last 24 Hours up to 6 AM 08/20/18 06:00 Intake Total 2820 ml Output Total 1351 ml Balance 1469 ml NEFTALY WELSH MD Aug 20, 2018 12:07
[2018-08-20] MEDS ORDERED: FUROSEMIDE 40 MG/4 ML VIAL (J1940) IV ONE (13:00)
[2018-08-20 14:00] VITALS: BP 169/76
[2018-08-20] MEDS: SIMVASTATIN 40 MG TAB PO SCH (21:02)
[2018-08-20 22:00] VITALS: BP 161/79
[2018-08-21] MEDS: LEVALBUTEROL 1.25 MG/0.5 ML CONCENTRATE NEB INH SCH ×3 (02:00→14:00)
[2018-08-21] MEDS: ACETAMINOPHEN 500 MG TAB PO SCH ×2 (05:58→15:11)
[2018-08-21 06:00] VITALS: BP 145/73
[2018-08-21 06:48] LABS: HEMATOCRIT 34.9 % (42.0-52.0); HEMOGLOBIN 11.6 g/dl (13.5-17.5); MEAN CORPUSCULAR HEMOGLOBIN 30.1 pg (27.0-33.0); MEAN CORPUSCULAR HGB CONC 33.2 g/dl (32.0-36.5); MEAN CORPUSCULAR VOLUME 90.4 fl (80.0-96.0); PLATELET COUNT, AUTOMATED 160 10^3/uL (150-450); RED BLOOD COUNT 3.86 10^6/uL (4.30-6.10); WHITE BLOOD COUNT 7.6 10^3/uL (4.0-10.0)
[2018-08-21 07:20] LABS: CALCIUM LEVEL 8.2 MG/DL (8.8-10.2); CREATININE FOR GFR 1.34 MG/DL (0.70-1.30); GLOMERULAR FILTRATION RATE 54.2 (>35); POTASSIUM SERUM 4.6 MEQ/L (3.5-5.1)
[2018-08-21] MEDS: HumaLOG 75/25 MIX INSULIN PER UNIT SC SCH (08:12)
[2018-08-21] MEDS: FINASTERIDE 5 MG TAB PO SCH (08:13)
[2018-08-21] MEDS: BENZONATATE 100 MG CAP PO SCH ×2 (08:13→15:11)
[2018-08-21] MEDS: guaiFENesin ER 600 MG TAB PO SCH (08:13)
[2018-08-21] MEDS: ASPIRIN 81 MG ENTERIC TAB PO SCH (08:13)
[2018-08-21] MEDS: HumaLOG INSULIN (NovoLOG) PER UNIT SC SCH ×2 (08:13→12:40)
[2018-08-21] MEDS: MULTIVITAMINS/MINERALS THERAP 1 TAB PO SCH (08:13)
[2018-08-21] MEDS: OMEGA-3 1000MG CAPSULE PO SCH (08:14)
[2018-08-21] MEDS: ENOXAPARIN 40 MG/0.4 ML SYRINGE (J1650) SC SCH (08:14)
[2018-08-21] MEDS ORDERED: LASI20TA3 PO (09:43)
[2018-08-21] MEDS ORDERED: BENZ-18 PO (09:43)
[2018-08-21] MEDS ORDERED: MUCI600T37 PO (09:43)
== END 2018-08-21 16:18 | disposition home or self-care (01) | DRG 193 ==
LOC: M ED 07:27 → EDBD 07:27 → M ED INP 10:13 → M MSPAV 12:36
PROVIDERS: ADMIT Internal Medicine; ATTEND Internal Medicine Nephrology
DX: J10.1 Influenza due to other identified influenza virus with other respiratory manifestations (principal); I50.33 Acute on chronic diastolic (congestive) heart failure; E87.1 Hypo-osmolality and hyponatremia; I47.1 Supraventricular tachycardia; E87.2 Acidosis; I12.9 Hypertensive chronic kidney disease with stage 1 through stage 4 chronic kidney disease, or unspecified chronic kidney disease; E11.9 Type 2 diabetes mellitus without complications; K57.30 Diverticulosis of large intestine without perforation or abscess without bleeding; H35.30 Unspecified macular degeneration; N40.0 Benign prostatic hyperplasia without lower urinary tract symptoms; N18.3 Chronic kidney disease, stage 3 (moderate); Z79.899 Other long term (current) drug therapy; Z79.82 Long term (current) use of aspirin; E83.42 Hypomagnesemia; E78.5 Hyperlipidemia, unspecified

== ENCOUNTER 2018-08-25 14:49 | Inpatient (IN) | payer MEDICARE, OTHER ==
[~2018-08-25] VITALS: Ht 180.3 cm; Wt 102.3 kg
[~2018-08-25 14:49] MED LIST: ASPI1TAB15 PO; BENZ-18 PO; FINA5TAB2 PO; FISH7.5C PO; HUMA75VL SC; JANU50TA4 PO; LASI20TA3 PO; LOVA40TA PO; MAGN1TAB25 PO; MUCI600T37 PO; RAMI1CAP22 PO; REFR1DRO8 OU; SITA50TAB PO; VITMTA PO
[2018-08-25 15:40] LABS: BASO % 0.3 % (0.0-1.0); EOS # 0.1 10^3/uL (0.0-0.50); EOS % 0.7 % (0.0-3.0); HEMATOCRIT 36.4 % (42.0-52.0); HEMOGLOBIN 12.5 g/dl (13.5-17.5); LYMPH # 0.9 10^3/uL (1.5-4.5); LYMPH % 7.8 % (24.0-44.0); MEAN CORPUSCULAR HEMOGLOBIN 30.3 pg (27.0-33.0); MEAN CORPUSCULAR HGB CONC 34.3 g/dl (32.0-36.5); MEAN CORPUSCULAR VOLUME 88.3 fl (80.0-96.0); MONO # 1.5 10^3/uL (0.0-0.8); NEUTROPHILS # 8.9 10^3/uL (1.8-7.7); NEUTROPHILS % 77.6 % (36.0-66.0); PLATELET COUNT, AUTOMATED 285 10^3/uL (150-450); RED BLOOD COUNT 4.12 10^6/uL (4.30-6.10); WHITE BLOOD COUNT 11.5 10^3/uL (4.0-10.0)
[2018-08-25 15:52] LABS: INR 1.01; PROTHROMBIN TIME 13.4 SECONDS (12.1-14.4)
[2018-08-25 15:53] LABS: PARTIAL THROMBOPLASTIN TIME 24.5 SECONDS (25.4-37.6)
[2018-08-25 16:15] LABS: ALT/SGPT 52 U/L (12-78); BLOOD UREA NITROGEN 21 MG/DL (7-18); CARBON DIOXIDE LEVEL 26 MEQ/L (21-32); CHLORIDE LEVEL 100 MEQ/L (98-107); CPK CREATINE PHOSPHOKINASE 182 U/L (39-308); CREATININE FOR GFR 1.44 MG/DL (0.70-1.30); GLOMERULAR FILTRATION RATE 49.9 (>35); GLUCOSE, FASTING 176 MG/DL (70-100); SODIUM LEVEL 133 MEQ/L (136-145)
--- NOTE | 2018-08-25 16:15 | REP ---
CHEST, TWO VIEWS: Two views of the chest are performed. Mild chronic interstitial prominence of the lung bases is stable. No acute infiltrate is seen. Cardiac silhouette is mildly prominent and stable. There is mild calcification of the thoracic aorta. Mediastinal silhouette is unchanged. There are degenerative changes of the spine. IMPRESSION: No acute pulmonary disease with no change since prior study of 08/15/2018. Electronically Signed by Rehan White MD 08/28/2018 12:05 P
[2018-08-25 16:16] LABS: ALBUMIN 2.9 GM/DL (3.2-5.2); BILIRUBIN,DIRECT 0.2 MG/DL (0.0-0.2); BILIRUBIN,TOTAL 0.5 MG/DL (0.2-1.0); FREE T4 1.33 NG/DL (0.76-1.46); MB/CK RELATIVE INDEX 0.71 (< OR =4); TOTAL PROTEIN 6.8 GM/DL (6.4-8.2); TROPONIN I < 0.02 NG/ML (< 0.10)
--- NOTE | 2018-08-25 17:59 | REP ---
CT of the chest without IV contrast: Comparison is 03/26/2010. There is a left lower lobe infiltrate as an interval change. No pleural effusion. There is a 4 mm lung nodule posteromedially in the left lower lobe on image 63, unchanged, likely a granuloma. The prior study there was a second 2 mm left lower lobe lung nodule, not visible today, possibly obscured by the infiltrate. There is a stable calcified granuloma in the right lower lobe, unchanged. There are no pleural effusions. There is no mediastinal lymph node enlargement. The study is insensitive for hilar lymph node enlargement in the absence of IV contrast. There is no axillary lymph node enlargement. The unenhanced thoracic aorta is unremarkable. Cardiac size is normal. There is pericardial thickening versus pericardial effusion measuring up to 4 mm depth, not present on the prior study. The visualized upper abdominal structures demonstrate multiple small gallbladder calculi near the gallbladder neck. There is no gallbladder or biliary duct distension. The visualized hepatic parenchyma, pancreas, spleen and adrenals are unremarkable. Impression: Left lower lobe infiltrate. Stable lower lobe lung nodules as described. Cholelithiasis. Electronically Signed by Rehan Collins MD 08/25/2018 05:50 P
[2018-08-25] MEDS ORDERED: cefTRIAXone SOD 1 GM in D5W MINI-BAG PLUS 50 ML IV ONE (18:30)
[2018-08-25] MEDS ORDERED: VANCOMYCIN HCL 1,000 MG, VIAL MATE ADAPTER 1 EACH in D5W 250 ML IV ONE (18:30)
--- NOTE | 2018-08-25 18:54 | ECGEPIP ---
Stationary ECG Study [facility] - ED Test Date: 2018-08-25 Pat Name: Malu HINSON Department: Room: - Gender: M [employer]: JOHN : 1935 Requested By: CRIS Reed Order Number: [id number] Reading MD: Agustín Najera Measurements Intervals [place] Rate: 71 P: 45 AK: 186 QRS: -34 QRSD: 81 T: 34 QT: 351 QTc: 382 Interpretive Statements SINUS RHYTHM LEFT AXIS DEVIATION LOW QRS VOLTAGE IN EXTREMITY LEADS SIMILAR TO 08/16/18 Electronically Signed On 08-25-2018 18:54:20 EST by Agustín Najera
[2018-08-25] MEDS ORDERED: ASPI1TAB PO (19:46)
[2018-08-25] MEDS ORDERED: TESS100C PO (19:46)
[2018-08-25] MEDS ORDERED: MUCI600T31 PO (19:46)
[2018-08-25] MEDS ORDERED: FURO20TA2 PO (19:46)
[2018-08-25] MEDS ORDERED: ACET-683 PO (19:46)
[2018-08-25] MEDS ORDERED: DEXTROSE 50% 50 ML SYRINGE IV PRN (20:15)
[2018-08-25] MEDS ORDERED: GLUCAGON FOR INJ 1 MG VIAL (J1610) SC PRN (20:15)
[2018-08-25] MEDS ORDERED: GLUCOSE 4 GM CHEW TABLET PO PRN (20:15)
[2018-08-25] MEDS ORDERED: ACETAMINOPHEN TAB 650MG DOSE (2X325MG) PO PRN (20:15)
--- NOTE | 2018-08-25 21:15 | HPE ---
DATE OF ADMISSION: 08/25/2018 PRIMARY CARE PROVIDER: Jadiel Chong MD ATTENDING PHYSICIAN: Katrina Zimmerman MD CHIEF COMPLAINT: Generalized weakness and coughing. HISTORY OF PRESENT ILLNESS: The patient is an 82-year-old white male with several chronic medical conditions listed below, came to the ER for evaluation of worsening coughing and generalized weakness. History is provided by himself as well as by review of the chart. Patient had been hospitalized her recently from August 15 for influenza A infection. He was discharged home on August 23. He states after discharge from hospital he was feeling better actually and he had more energy and he was moving more around. However, he still has a cough which is getting worse gradually and he has a lot of brownish sputum too. But denies fever, no chills. Today he was feeling suddenly very bad, very weak and decided to come to the hospital for full evaluation. In the ER, he had an x-ray as well as CT of the chest done which demonstrated he has left lower lobe pneumonia. So medicine service was called for admission. REVIEW OF SYSTEMS: Denies fever. No chills, no headache, blurry vision. No shortness of breath. Positive cough with brownish sputum. No hemoptysis. No chest pain. No nausea, no vomiting. No abdominal pain. No diarrhea. General weakness. No focal weakness and all other systems reviewed, but negative. PAST MEDICAL HISTORY: 1. Type 2 diabetes. 2. Hypertension. 3. Chronic kidney disease (CKD), stage III. 4. Benign prostatic hypertrophy (BPH). 5. Recent influenza infection. ALLERGIES: No known drug allergies. MEDICATIONS: Are reviewed. PAST SURGICAL HISTORY: Tonsillectomy. Hernia repair. Appendectomy. Vasectomy. SOCIAL HISTORY: Denies tobacco use. Denies alcohol abuse. Denies drug abuse. He lives by himself and he is FULL CODE. FAMILY HISTORY: Reviewed, but noncontributory. PHYSICAL EXAMINATION: VITAL SIGNS: Temperature 97.7, heart rate 72, respiratory rate 20, blood pressure 136/68, and oxygen saturation 95% on room air. GENERAL: He is awake, alert, oriented times three. He is not in acute distress. HEENT: Atraumatic. Pupils equal, round and reactive to light. No jaundice. Extraocular muscles intact. Ears, nose, throat: Normal. Mouth: Mucous moist. Neck: No JVD. No bruits. LUNGS: Clear with left lower basal crackles. HEART: S1, S2, regular. No murmur. ABDOMEN: Soft, bowel sounds positive. Nontender. LOWER EXTREMITIES: No edema in bilateral lower extremities. NEUROLOGICAL: Nonfocal. SKIN: No rash. PSYCHOLOGICAL: No acute psychosis. DIAGNOSTICS AND LAB STUDIES: Include the following: CBC and differential: WBC 11.5, hemoglobin and hematocrit 12.5/36.4, platelets 285. Sodium 133, potassium 5.0, chloride 100, bicarbonate 26, BUN 21, creatinine 1.4. Glucose 176. CT and chest x-ray demonstrate left lower lobe infiltrate. IMPRESSION: 1. Hospital acquired pneumonia. 2. Type 2 diabetes. 3. Hypertension. 4. CKD stage III. 5. Benign prostatic hypertrophy (BPH). PLAN: Patient will be admitted to med-surg floor. I will treat him with IV Zosyn and doxycycline for covering hospital acquired pneumonia. He had a recent negative MRSA screen and will continue most of his home medications.
[2018-08-25] MEDS: HumaLOG INSULIN (NovoLOG) PER UNIT SC SCH (21:29)
[2018-08-25] MEDS: NS 1,000 ML IV SCH (21:36)
[2018-08-25] MEDS: SENOKOT S TAB PO SCH (21:59)
[2018-08-26 06:53] LABS: BASO % 0.3 % (0.0-1.0); EOS # 0.1 10^3/uL (0.0-0.50); EOS % 1.3 % (0.0-3.0); HEMATOCRIT 35.3 % (42.0-52.0); HEMOGLOBIN 11.6 g/dl (13.5-17.5); LYMPH % 11.1 % (24.0-44.0); MEAN CORPUSCULAR HEMOGLOBIN 29.7 pg (27.0-33.0); MEAN CORPUSCULAR HGB CONC 32.9 g/dl (32.0-36.5); MEAN CORPUSCULAR VOLUME 90.5 fl (80.0-96.0); MONO # 1.5 10^3/uL (0.0-0.8); MONO % 16.8 % (0.0-5.0); NEUTROPHILS # 6.3 10^3/uL (1.8-7.7); NEUTROPHILS % 69.9 % (36.0-66.0); PLATELET COUNT, AUTOMATED 290 10^3/uL (150-450)
[2018-08-26 07:22] LABS: CALCIUM LEVEL 8.1 MG/DL (8.8-10.2); CREATININE FOR GFR 1.39 MG/DL (0.70-1.30); POTASSIUM SERUM 4.8 MEQ/L (3.5-5.1)
[2018-08-26] MEDS: ENOXAPARIN 40 MG/0.4 ML SYRINGE (J1650) SC SCH (08:50)
[2018-08-26] MEDS: DOXYCYCLINE HYCLATE 100 MG in D5W MINI-BAG PLUS 100 ML IV SCH ×2 (08:50→21:35)
[2018-08-26] MEDS: SENOKOT S TAB PO SCH ×2 (08:50→21:35)
[2018-08-26] MEDS: HumaLOG INSULIN (NovoLOG) PER UNIT SC SCH ×4 (08:51→21:00)
[2018-08-26] MEDS ORDERED: ALBUTEROL SULFATE 2.5 MG/0.5 ML INH NEB SOLN INH PRN (09:00)
[2018-08-26] MEDS ORDERED: PIPERACILLIN/TAZOBACTAM SOD 3.375 GM in D5W MINI-BAG PLUS 50 ML IV SCH (09:00)
--- NOTE | 2018-08-26 09:18 | IPN ---
DATE OF SERVICE: 08/25/2018 Clark is seen in the emergency room in interim bed status. He sees Miriam Gould at the [facility]. He is under the care of Dr. Katrina Zimmerman as a hospitalist patient. He was admitted with pneumonia which is post influenza. He had been admitted 08/15 - 08/23/2018 for influenza A. Went home feeling better. Was doing quite well until he developed a cough productive of brownish sputum. He came to the emergency room. CT chest showed left lower lobe pneumonia. He is being admitted for post influenza pneumonia. PAST MEDICAL HISTORY: Type 2 diabetes. Hypertension. Chronic kidney disease stage III. History of benign prostatic hypertrophy (BPH). He feels, weak, tired and mildly short of breath. Blood pressure 130/59, pulse 77, respiratory rate 18, 95% oxygen saturation. Afebrile. General appearance: Looks mildly ill. Lungs: Rales, rhonchi left base. Heart: Regular rate and rhythm. Abdomen soft, nontender. No peripheral edema. LABS: White count is down to 9, hemoglobin 11.6, platelets 290. Sodium 135, potassium 4.8, BUN 16, creatinine 1.4. (Baseline creatinine is 1.26). IMPRESSION: 1. Left lower lobe pneumonia post influenza. We are going to change his antibiotics. Post influenza pneumonia can sometimes be secondary to staphylococcus aureus. It would be prudent to switch the Zosyn to ceftaroline. Continue doxycycline. I will start some nebulized bronchodilator. We are also providing intravenous steroids Solu-Medrol 40 mg IV daily times five days which has been shown to reduce mortality with severe pneumonia requiring hospitalization. 2. Hyperlipidemia. I will restart his simvastatin 40 mg daily. 3. Diabetes. Restart Januvia 50 mg daily. Continue sliding scale of insulin coverage per protocol. 4. Benign prostatic hypertrophy. He is on finasteride 5 mg daily which I restarted. 5. Hypertensive heart disease. He is off his Ramipril, we could restart this if his blood pressure is sufficient tomorrow. 6. Mild hyponatremia, this is probably secondary to pneumonia. He is getting low dose saline. This could probably be stopped tomorrow as well.
[2018-08-26] MEDS: FINASTERIDE 5 MG TAB PO SCH (11:20)
[2018-08-26] MEDS: methylPREDNISolone INJ 40 MG/1 ML VIAL (J2920) IV SCH (11:21)
[2018-08-26] MEDS: NS 1,000 ML IV SCH ×2 (11:25→21:43)
[2018-08-26] MEDS: CEFTAROLINE FOSAMIL 400 MG in D5W MINI-BAG PLUS 50 ML IV SCH (11:25)
[2018-08-26] MEDS: ALBUTEROL SULFATE 2.5 MG/0.5 ML INH NEB SOLN INH SCH ×4 (11:45→20:24)
[2018-08-26] MEDS: SITagliptin 50 MG TAB (JANUVIA) PO SCH (12:10)
[2018-08-26 15:30] VITALS: BP 151/70
[2018-08-26] MEDS: SIMVASTATIN 40 MG TAB PO SCH (21:34)
[2018-08-26] MEDS: ASPIRIN 81 MG ENTERIC TAB PO SCH (21:34)
[2018-08-26 22:00] VITALS: BP 143/65
[2018-08-26] MEDS: BENZONATATE 100 MG CAP PO PRN (23:10)
[2018-08-27] MEDS: CEFTAROLINE FOSAMIL 400 MG in D5W MINI-BAG PLUS 50 ML IV SCH ×3 (01:09→22:49)
[2018-08-27 06:00] VITALS: BP 153/74
[2018-08-27 06:00] LABS: BASO % 0.1 % (0.0-1.0); HEMOGLOBIN 11.2 g/dl (13.5-17.5); LYMPH % 8.8 % (24.0-44.0); MEAN CORPUSCULAR HEMOGLOBIN 30.3 pg (27.0-33.0); MEAN CORPUSCULAR HGB CONC 33.9 g/dl (32.0-36.5); MEAN CORPUSCULAR VOLUME 89.2 fl (80.0-96.0); MONO # 1.2 10^3/uL (0.0-0.8); MONO % 10.6 % (0.0-5.0); NEUTROPHILS # 8.7 10^3/uL (1.8-7.7); NEUTROPHILS % 79.8 % (36.0-66.0); PLATELET COUNT, AUTOMATED 293 10^3/uL (150-450); WHITE BLOOD COUNT 10.8 10^3/uL (4.0-10.0)
[2018-08-27 06:15] LABS: CALCIUM LEVEL 8.5 MG/DL (8.8-10.2); CREATININE FOR GFR 1.43 MG/DL (0.70-1.30); GLOMERULAR FILTRATION RATE 50.3 (>35); POTASSIUM SERUM 5.1 MEQ/L (3.5-5.1)
[2018-08-27] MEDS: ALBUTEROL SULFATE 2.5 MG/0.5 ML INH NEB SOLN INH SCH ×4 (07:12→19:44)
[2018-08-27] MEDS: methylPREDNISolone INJ 40 MG/1 ML VIAL (J2920) IV SCH (10:08)
[2018-08-27] MEDS: FINASTERIDE 5 MG TAB PO SCH (10:08)
[2018-08-27] MEDS: SENOKOT S TAB PO SCH ×2 (10:08→21:45)
[2018-08-27] MEDS: SITagliptin 50 MG TAB (JANUVIA) PO SCH (10:08)
[2018-08-27] MEDS: ENOXAPARIN 40 MG/0.4 ML SYRINGE (J1650) SC SCH (10:08)
[2018-08-27] MEDS: DOXYCYCLINE HYCLATE 100 MG in D5W MINI-BAG PLUS 100 ML IV SCH ×2 (10:08→21:44)
[2018-08-27] MEDS: HumaLOG INSULIN (NovoLOG) PER UNIT SC SCH ×4 (10:09→21:46)
[2018-08-27] MEDS: NS 1,000 ML IV SCH (12:44)
[2018-08-27 14:00] VITALS: BP 143/66
[2018-08-27] MEDS: SIMVASTATIN 40 MG TAB PO SCH (21:45)
[2018-08-27] MEDS: ASPIRIN 81 MG ENTERIC TAB PO SCH (21:45)
[2018-08-27 22:00] VITALS: BP 139/63
[2018-08-28] MEDS: NS 1,000 ML IV SCH (04:32)
[2018-08-28 06:00] VITALS: BP 140/80
[2018-08-28 06:21] LABS: BASO % 0.2 % (0.0-1.0); HEMATOCRIT 33.1 % (42.0-52.0); HEMOGLOBIN 11.1 g/dl (13.5-17.5); LYMPH # 1.1 10^3/uL (1.5-4.5); LYMPH % 8.3 % (24.0-44.0); MEAN CORPUSCULAR HEMOGLOBIN 30.2 pg (27.0-33.0); MEAN CORPUSCULAR HGB CONC 33.5 g/dl (32.0-36.5); MEAN CORPUSCULAR VOLUME 89.9 fl (80.0-96.0); MONO # 1.4 10^3/uL (0.0-0.8); MONO % 10.9 % (0.0-5.0); NEUTROPHILS # 10.3 10^3/uL (1.8-7.7); NEUTROPHILS % 79.7 % (36.0-66.0); PLATELET COUNT, AUTOMATED 342 10^3/uL (150-450); RED BLOOD COUNT 3.68 10^6/uL (4.30-6.10); WHITE BLOOD COUNT 12.9 10^3/uL (4.0-10.0)
[2018-08-28 06:37] LABS: CALCIUM LEVEL 8.8 MG/DL (8.8-10.2); CREATININE FOR GFR 1.55 MG/DL (0.70-1.30); GLOMERULAR FILTRATION RATE 45.8 (>35); POTASSIUM SERUM 5.5 MEQ/L (3.5-5.1)
[2018-08-28] MEDS: ALBUTEROL SULFATE 2.5 MG/0.5 ML INH NEB SOLN INH SCH ×4 (07:09→20:00)
[2018-08-28] MEDS: SENOKOT S TAB PO SCH ×2 (08:47→21:17)
[2018-08-28] MEDS: SITagliptin 50 MG TAB (JANUVIA) PO SCH (08:47)
[2018-08-28] MEDS: FINASTERIDE 5 MG TAB PO SCH (08:47)
[2018-08-28] MEDS: methylPREDNISolone INJ 40 MG/1 ML VIAL (J2920) IV SCH (08:48)
[2018-08-28] MEDS: ENOXAPARIN 40 MG/0.4 ML SYRINGE (J1650) SC SCH (08:48)
[2018-08-28] MEDS: DOXYCYCLINE HYCLATE 100 MG in D5W MINI-BAG PLUS 100 ML IV SCH (08:48)
[2018-08-28] MEDS: HumaLOG INSULIN (NovoLOG) PER UNIT SC SCH ×4 (08:49→21:18)
--- NOTE | 2018-08-28 08:49 | IPN ---
DATE: 08/27/2018 This is a 82-year-old male who was admitted for pneumonia, which is post influenza. His chest CT showed left lower lobe pneumonia. Past medical history type 2 diabetes, hypertension, chronic kidney disease stage III, history of benign prostatic hypertrophy (BPH). Today he states he feels still weak and tired, but less short of breath. Continues to cough up thick mucous. Blood pressure 150/70, pulse 70, respirations 18, oxygen saturation 97% on room air. Temperature 97.6. The patient is alert and oriented times three. Pharynx, tongue and gums pink and moist. Tongue is midline. Neck is supple without lymphadenopathy. No thyromegaly, no goiter. Chest has rhonchi left base that clear with cough. Heart is regular. Abdomen benign. Bowel sounds positive. Extremities no cyanosis, clubbing or edema. LABORATORY STUDIES: Sodium 130, potassium 5.1, chloride 99, CO2 23, BUN up slightly at 24, creatinine up slightly at 1.43. Fasting glucose 310 covered with sliding scale, elevation probably secondary to the IV Solu-Medrol. IMPRESSION: Left lower lobe pneumonia post influenza. He is now on ceftaroline. He is on doxycycline. Will send a sputum for culture and sensitivity. Continue IV Solu-Medrol. Oxygen saturations remain above 90% on room air. Hyperlipidemia. Continues on simvastatin. Diabetes. He is on Januvia. Continue with sliding scale of insulin coverage per protocol. Benign prostatic hypertrophy (BPH). Finasteride 5 mg continued. Hypertension. Did not restart his ramipril secondary to elevated potassium of 5.0. Monitor blood pressure. Mild hyponatremia. Continue low dose saline.
[2018-08-28] MEDS: BENZONATATE 100 MG CAP PO PRN ×3 (08:53→22:34)
--- NOTE | 2018-08-28 10:34 | IPN ---
DATE OF SERVICE: 08/28/2018 Clark is seen in [address] [place], rounding for the hospitalists. He looks dramatically better than when he was admitted a few days ago. He has possible Staphylococcus pneumonia or at least a post influenza left lower lobe pneumonia which is frequently secondary to Staphylococcus. He is having trouble keeping an IV in and keep losing his IV access, so we are minimizing a number of IV medications today. His blood sugar is elevated, probably from the empiric steroids he is receiving as complementary therapy for severe pneumonia. No chest pain. He just feels weak and tired. PHYSICAL EXAMINATION: Afebrile 140/80, oxygen (O2) saturation 95% on room air. General appearance: He is resting in a chair. He looks much better than the last time I saw him. HEENT: Unremarkable. Lungs: A few rales left base. Better air movement. Heart: Regular rate and rhythm. Abdomen: Soft, nontender. No peripheral edema. LABORATORIES: Blood sugars in the 300-400 range. Sodium 133, potassium 5.5, BUN 30, creatinine 1.5, glucose 266. White count 12.9, hemoglobin 11.1, platelets 342. IMPRESSION: 1. Post influenza left lower lobe pneumonia, possible Staphylococcus. Continue ceftaroline. He is doxycycline, as well. Will change to by mouth doxycycline. Will change his steroids to by mouth prednisone for 2 more days and then discontinue them. He also can stop his IV fluids. 2. Diabetes. He is on Januvia and 75/25 insulin at home. Will start some detemir insulin here. Continue sliding scale. He is on Januvia, for what that is worth, while he is here. 3. Hypertension. His blood pressure has been well controlled. He is off his ramipril. He is hyperkalemic, so I would not restart at this point anyway. 4. Mild hyponatremia, probably from the hyperglycemia. 5. Benign prostatic hypertrophy (BPH). Continue finasteride 5 mg daily. He will probably be hospitalized into the middle or end of the week. I told him to expect a prolonged convalescence at home. Dr. Susana Oliva will be assuming his care tomorrow.
[2018-08-28] MEDS: CEFTAROLINE FOSAMIL 400 MG in D5W MINI-BAG PLUS 50 ML IV SCH ×2 (11:54→22:34)
[2018-08-28 14:00] VITALS: BP 144/63
[2018-08-28] MEDS: ASPIRIN 81 MG ENTERIC TAB PO SCH (21:17)
[2018-08-28] MEDS: DOXYCYCLINE HYCLATE 100 MG TAB PO SCH (21:17)
[2018-08-28] MEDS: SIMVASTATIN 40 MG TAB PO SCH (21:17)
[2018-08-28] MEDS: LEVEMIR (INSULIN DETEMIR) 1 UNITS/0.01ML SC SCH (21:18)
[2018-08-28 22:00] VITALS: BP 136/76
[2018-08-29 06:00] VITALS: BP 161/70
[2018-08-29 06:03] LABS: BASO % 0.1 % (0.0-1.0); HEMATOCRIT 31.2 % (42.0-52.0); HEMOGLOBIN 10.6 g/dl (13.5-17.5); LYMPH # 1.3 10^3/uL (1.5-4.5); LYMPH % 11.4 % (24.0-44.0); MEAN CORPUSCULAR HEMOGLOBIN 29.9 pg (27.0-33.0); MEAN CORPUSCULAR VOLUME 88.1 fl (80.0-96.0); MONO # 1.6 10^3/uL (0.0-0.8); MONO % 14.1 % (0.0-5.0); NEUTROPHILS # 8.2 10^3/uL (1.8-7.7); NEUTROPHILS % 73.5 % (36.0-66.0); PLATELET COUNT, AUTOMATED 340 10^3/uL (150-450); RED BLOOD COUNT 3.54 10^6/uL (4.30-6.10); WHITE BLOOD COUNT 11.2 10^3/uL (4.0-10.0)
[2018-08-29 06:21] LABS: CALCIUM LEVEL 8.6 MG/DL (8.8-10.2); CREATININE FOR GFR 1.43 MG/DL (0.70-1.30); GLOMERULAR FILTRATION RATE 50.3 (>35); POTASSIUM SERUM 4.7 MEQ/L (3.5-5.1)
[2018-08-29] MEDS: ALBUTEROL SULFATE 2.5 MG/0.5 ML INH NEB SOLN INH SCH ×4 (07:36→20:01)
[2018-08-29] MEDS: FINASTERIDE 5 MG TAB PO SCH (08:49)
[2018-08-29] MEDS: BENZONATATE 100 MG CAP PO PRN ×2 (08:50→19:44)
[2018-08-29] MEDS: SITagliptin 50 MG TAB (JANUVIA) PO SCH (08:50)
[2018-08-29] MEDS: ENOXAPARIN 40 MG/0.4 ML SYRINGE (J1650) SC SCH (08:50)
[2018-08-29] MEDS: HumaLOG INSULIN (NovoLOG) PER UNIT SC SCH ×4 (08:50→22:22)
[2018-08-29] MEDS: SENOKOT S TAB PO SCH ×2 (08:50→22:21)
[2018-08-29] MEDS: DOXYCYCLINE HYCLATE 100 MG TAB PO SCH ×2 (08:51→22:21)
[2018-08-29] MEDS: predniSONE 20 MG TAB PO SCH (08:51)
[2018-08-29] MEDS: CEFTAROLINE FOSAMIL 400 MG in D5W MINI-BAG PLUS 50 ML IV SCH ×2 (10:28→22:27)
[2018-08-29 14:00] VITALS: BP 137/63
--- NOTE | 2018-08-29 15:15 | IPN ---
DATE: 08/29/2018 SUBJECTIVE: Patient is seen and examined in the room today. Patient still complains of fatigue, especially during exertion. Denies any acute changes. Denies any fever or chills. OBJECTIVE: VITAL SIGNS: Temperature 98.3, pulse 71, respirations 18, blood pressure 161/78, pulse oximetry 96% on room air. GENERAL: No signs of acute distress. Alert and awake. HEENT: Normocephalic, atraumatic. Extraocular muscles grossly intact. CARDIOVASCULAR: Positive S1, S2. Regular rate. LUNGS: Clear to auscultation bilaterally. ABDOMEN: Soft, nontender, nondistended. Bowel sounds present. EXTREMITIES: No edema. LABORATORY DATA: WBC 11.2, hemoglobin 10.6, hematocrit 31.2, platelet count 340. Sodium 134, potassium 4.7, chloride 102, carbon dioxide 24, BUN 33, creatinine 1.43, GFR 50.3, fasting glucose 276, calcium 8.6. ASSESSMENT AND PLAN: 1. Left lower lobe pneumonia. Continue to wait for the sputum culture results. The patient is currently on ceftaroline and doxycycline and on steroids. Patient had recent influenza infection. 2. Diabetes. Levemir. On sliding scale. 3. History of recent influenza infection. 4. Hypertension. Blood pressure is the satisfactory range. On ramipril. 5. Benign prostatic hypertrophy (BPH). On Proscar. 6. Deep venous thrombosis (DVT) prophylaxis. On Lovenox.
[2018-08-29] MEDS: RAMIPRIL 1.25 MG CAP PO SCH (15:25)
[2018-08-29 22:00] VITALS: BP 143/63
[2018-08-29] MEDS: SIMVASTATIN 40 MG TAB PO SCH (22:21)
[2018-08-29] MEDS: ASPIRIN 81 MG ENTERIC TAB PO SCH (22:21)
[2018-08-29] MEDS: LEVEMIR (INSULIN DETEMIR) 1 UNITS/0.01ML SC SCH (22:22)
[2018-08-30 06:00] VITALS: BP 157/73
[2018-08-30 06:00] LABS: BASO % 0.2 % (0.0-1.0); EOS % 0.2 % (0.0-3.0); HEMATOCRIT 32.6 % (42.0-52.0); HEMOGLOBIN 11.2 g/dl (13.5-17.5); LYMPH # 1.4 10^3/uL (1.5-4.5); LYMPH % 14.3 % (24.0-44.0); MEAN CORPUSCULAR HEMOGLOBIN 30.3 pg (27.0-33.0); MEAN CORPUSCULAR HGB CONC 34.4 g/dl (32.0-36.5); MEAN CORPUSCULAR VOLUME 88.1 fl (80.0-96.0); MONO # 1.6 10^3/uL (0.0-0.8); MONO % 16.8 % (0.0-5.0); NEUTROPHILS # 6.4 10^3/uL (1.8-7.7); NEUTROPHILS % 67.4 % (36.0-66.0); PLATELET COUNT, AUTOMATED 355 10^3/uL (150-450); WHITE BLOOD COUNT 9.4 10^3/uL (4.0-10.0)
[2018-08-30 06:30] LABS: CREATININE FOR GFR 1.49 MG/DL (0.70-1.30); GLOMERULAR FILTRATION RATE 47.9 (>35); POTASSIUM SERUM 4.5 MEQ/L (3.5-5.1)
[2018-08-30] MEDS: ALBUTEROL SULFATE 2.5 MG/0.5 ML INH NEB SOLN INH SCH ×4 (07:02→22:00)
[2018-08-30] MEDS: predniSONE 20 MG TAB PO SCH (09:07)
[2018-08-30] MEDS: SITagliptin 50 MG TAB (JANUVIA) PO SCH (09:08)
[2018-08-30] MEDS: FINASTERIDE 5 MG TAB PO SCH (09:08)
[2018-08-30] MEDS: HumaLOG INSULIN (NovoLOG) PER UNIT SC SCH ×4 (09:08→22:50)
[2018-08-30] MEDS: SENOKOT S TAB PO SCH ×2 (09:08→22:49)
[2018-08-30] MEDS: DOXYCYCLINE HYCLATE 100 MG TAB PO SCH ×2 (09:08→22:49)
[2018-08-30] MEDS: ENOXAPARIN 40 MG/0.4 ML SYRINGE (J1650) SC SCH (09:08)
[2018-08-30] MEDS: RAMIPRIL 1.25 MG CAP PO SCH (09:10)
[2018-08-30] MEDS: CEFTAROLINE FOSAMIL 400 MG in D5W MINI-BAG PLUS 50 ML IV SCH ×2 (10:21→22:57)
[2018-08-30 14:00] VITALS: BP 139/64
--- NOTE | 2018-08-30 15:54 | IPNPDOC ---
Text Note Date of Service The patient was seen on 08/30/18. NOTE SUBJECTIVE: Patient is seen and examined in the room today. Patient still complains of fatigue. He feels he is getting better but he does not feel he is back to his baseline. Denies any fever or chills. OBJECTIVE: VITAL SIGNS: Listed below. GENERAL: No signs of acute distress. Alert and awake. HEENT: Normocephalic, atraumatic. Extraocular muscles grossly intact. CARDIOVASCULAR: Positive S1, S2. Regular rate. LUNGS: Clear to auscultation bilaterally. ABDOMEN: Soft, nontender, nondistended. Bowel sounds present. EXTREMITIES: No edema. LABORATORY DATA: Listed below. ASSESSMENT AND PLAN: #. Left lower lobe pneumonia. - Patient has been on empirical antibiotics. Sputum culture demonstrates normal kkoo. However, culture was obtained few days after antibiotic. Patient almost finishes course of antibiotic. Patient had recent influenza infection. #. Diabetes. Levemir. On sliding scale. #. History of recent influenza infection. #. Hypertension. Blood pressure is the satisfactory range. On ramipril. #. Benign prostatic hypertrophy (BPH). On Proscar. #. Deep venous thrombosis (DVT) prophylaxis. On Lovenox. VS,Fishbone, I+O VS, Fishbone, I+O Laboratory Tests 08/30/18 05:22 Red Blood Count 3.70 L, Mean Corpuscular Volume 88.1, Mean Corpuscular Hemoglobin 30.3, Mean Corpuscular Hemoglobin Concent 34.4, Red Cell Distribution Width 12.6, Neutrophils (%) (Auto) 67.4 H, Lymphocytes (%) (Auto) 14.3 L, Monocytes (%) (Auto) 16.8 H, Eosinophils (%) (Auto) 0.2, Basophils (%) (Auto) 0.2, Neutrophils # (Auto) 6.4, Lymphocytes # (Auto) 1.4 L, Monocytes # (Auto) 1.6 H, Eosinophils # (Auto) 0.0, Basophils # (Auto) 0.0, Calcium Level 9.0 Vital Signs Date Time Temp Pulse Resp B/P (MAP) Pulse Ox O2 Delivery O2 Flow Rate FiO2 08/30/18 14:00 97.5 94 19 139/64 (89) 98 08/26/18 15:17 Room Air I&O- Last 24 Hours up to 6 AM 08/30/18 06:00 Intake Total 2220 ml Output Total 3400 ml Balance -1180 ml MELODIE FERRARO DO Aug 30, 2018 15:54
[2018-08-30 22:00] VITALS: BP 129/58
[2018-08-30] MEDS: ASPIRIN 81 MG ENTERIC TAB PO SCH (22:49)
[2018-08-30] MEDS: BENZONATATE 100 MG CAP PO PRN (22:49)
[2018-08-30] MEDS: SIMVASTATIN 40 MG TAB PO SCH (22:49)
[2018-08-30] MEDS: LEVEMIR (INSULIN DETEMIR) 1 UNITS/0.01ML SC SCH (22:50)
[2018-08-31 05:59] LABS: BASO % 0.2 % (0.0-1.0); EOS % 0.4 % (0.0-3.0); HEMATOCRIT 32.4 % (42.0-52.0); LYMPH # 1.2 10^3/uL (1.5-4.5); LYMPH % 11.3 % (24.0-44.0); MEAN CORPUSCULAR HEMOGLOBIN 30.1 pg (27.0-33.0); MEAN CORPUSCULAR VOLUME 88.8 fl (80.0-96.0); MONO # 1.6 10^3/uL (0.0-0.8); MONO % 15.2 % (0.0-5.0); NEUTROPHILS # 7.7 10^3/uL (1.8-7.7); NEUTROPHILS % 71.9 % (36.0-66.0); PLATELET COUNT, AUTOMATED 347 10^3/uL (150-450); RED BLOOD COUNT 3.65 10^6/uL (4.30-6.10); WHITE BLOOD COUNT 10.7 10^3/uL (4.0-10.0)
[2018-08-31 06:00] VITALS: BP 129/65
[2018-08-31 06:17] LABS: CALCIUM LEVEL 8.5 MG/DL (8.8-10.2); CREATININE FOR GFR 1.48 MG/DL (0.70-1.30); GLOMERULAR FILTRATION RATE 48.3 (>35); POTASSIUM SERUM 4.7 MEQ/L (3.5-5.1)
[2018-08-31] MEDS: ALBUTEROL SULFATE 2.5 MG/0.5 ML INH NEB SOLN INH SCH ×4 (07:08→20:24)
[2018-08-31] MEDS: HumaLOG INSULIN (NovoLOG) PER UNIT SC SCH ×4 (09:03→22:12)
[2018-08-31] MEDS: SITagliptin 50 MG TAB (JANUVIA) PO SCH (09:04)
[2018-08-31] MEDS: RAMIPRIL 1.25 MG CAP PO SCH (09:04)
[2018-08-31] MEDS: ENOXAPARIN 40 MG/0.4 ML SYRINGE (J1650) SC SCH (09:04)
[2018-08-31] MEDS: SENOKOT S TAB PO SCH ×2 (09:04→22:11)
[2018-08-31] MEDS: FINASTERIDE 5 MG TAB PO SCH (09:04)
[2018-08-31] MEDS: DOXYCYCLINE HYCLATE 100 MG TAB PO SCH ×2 (09:04→22:11)
[2018-08-31] MEDS: CEFTAROLINE FOSAMIL 400 MG in D5W MINI-BAG PLUS 50 ML IV SCH ×2 (11:13→22:11)
--- NOTE | 2018-08-31 18:29 | IPNPDOC ---
Text Note Date of Service The patient was seen on 08/31/18. NOTE SUBJECTIVE: Patient is seen and examined in the room today. Patient still complains of fatigue. He denies shortness of breath. Denies any fever or chills. OBJECTIVE: VITAL SIGNS: Listed below. GENERAL: No signs of acute distress. Alert and awake. HEENT: Normocephalic, atraumatic. Extraocular muscles grossly intact. CARDIOVASCULAR: Positive S1, S2. Regular rate. LUNGS: Clear to auscultation bilaterally. ABDOMEN: Soft, nontender, nondistended. Bowel sounds present. EXTREMITIES: No edema. LABORATORY DATA: Listed below. ASSESSMENT AND PLAN: #. Left lower lobe pneumonia. - Patient has been on empirical antibiotics. Sputum culture demonstrates normal koko. However, culture was obtained few days after antibiotic. Patient had recent influenza infection. - Continue physical therapy. #. Diabetes. Levemir. On sliding scale. #. History of recent influenza infection. #. Hypertension. Blood pressure is the satisfactory range. On ramipril. #. Benign prostatic hypertrophy (BPH). On Proscar. #. Deep venous thrombosis (DVT) prophylaxis. On Lovenox. VS,Fishbone, I+O VS, Fishbone, I+O Laboratory Tests 08/31/18 05:20 Red Blood Count 3.65 L, Mean Corpuscular Volume 88.8, Mean Corpuscular Hemoglo bin 30.1, Mean Corpuscular Hemoglobin Concent 34.0, Red Cell Distribution Width 13.0, Neutrophils (%) (Auto) 71.9 H, Lymphocytes (%) (Auto) 11.3 L, Monocytes (%) (Auto) 15.2 H, Eosinophils (%) (Auto) 0.4, Basophils (%) (Auto) 0.2, Neutrophils # (Auto) 7.7, Lymphocytes # (Auto) 1.2 L, Monocytes # (Auto) 1.6 H, Eosinophils # (Auto) 0.0, Basophils # (Auto) 0.0, Calcium Level 8.5 L Vital Signs Date Time Temp Pulse Resp B/P (MAP) Pulse Ox O2 Delivery O2 Flow Rate FiO2 08/31/18 09:04 128/60 08/31/18 06:00 98.0 72 18 95 08/26/18 15:17 Room Air I&O- Last 24 Hours up to 6 AM 08/31/18 06:00 Intake Total 1540 ml Output Total 2550 ml Balance -1010 ml MELODIE FERRARO DO Aug 31, 2018 18:29
[2018-08-31 22:00] VITALS: BP 144/72
[2018-08-31] MEDS: ASPIRIN 81 MG ENTERIC TAB PO SCH (22:11)
[2018-08-31] MEDS: SIMVASTATIN 40 MG TAB PO SCH (22:11)
[2018-08-31] MEDS: LEVEMIR (INSULIN DETEMIR) 1 UNITS/0.01ML SC SCH (22:12)
[2018-08-31] MEDS: BENZONATATE 100 MG CAP PO PRN (22:19)
[2018-09-01 06:00] VITALS: BP 143/67
[2018-09-01 06:07] LABS: BASO % 0.4 % (0.0-1.0); EOS # 0.2 10^3/uL (0.0-0.50); EOS % 2.6 % (0.0-3.0); HEMATOCRIT 33.9 % (42.0-52.0); HEMOGLOBIN 11.1 g/dl (13.5-17.5); LYMPH # 1.3 10^3/uL (1.5-4.5); LYMPH % 14.6 % (24.0-44.0); MEAN CORPUSCULAR HEMOGLOBIN 29.3 pg (27.0-33.0); MEAN CORPUSCULAR HGB CONC 32.7 g/dl (32.0-36.5); MEAN CORPUSCULAR VOLUME 89.4 fl (80.0-96.0); MONO # 1.5 10^3/uL (0.0-0.8); NEUTROPHILS # 5.5 10^3/uL (1.8-7.7); NEUTROPHILS % 63.9 % (36.0-66.0); PLATELET COUNT, AUTOMATED 332 10^3/uL (150-450); RED BLOOD COUNT 3.79 10^6/uL (4.30-6.10); WHITE BLOOD COUNT 8.6 10^3/uL (4.0-10.0)
[2018-09-01 06:27] LABS: CALCIUM LEVEL 8.5 MG/DL (8.8-10.2); CREATININE FOR GFR 1.52 MG/DL (0.70-1.30); GLOMERULAR FILTRATION RATE 46.9 (>35); POTASSIUM SERUM 4.9 MEQ/L (3.5-5.1)
[2018-09-01] MEDS: ALBUTEROL SULFATE 2.5 MG/0.5 ML INH NEB SOLN INH SCH ×4 (07:30→19:42)
[2018-09-01] MEDS: ENOXAPARIN 40 MG/0.4 ML SYRINGE (J1650) SC SCH (07:55)
[2018-09-01] MEDS: SITagliptin 50 MG TAB (JANUVIA) PO SCH (07:55)
[2018-09-01] MEDS: DOXYCYCLINE HYCLATE 100 MG TAB PO SCH (07:55)
[2018-09-01] MEDS: SENOKOT S TAB PO SCH ×2 (07:55→20:54)
[2018-09-01] MEDS: FINASTERIDE 5 MG TAB PO SCH (07:55)
[2018-09-01] MEDS: RAMIPRIL 1.25 MG CAP PO SCH (07:56)
[2018-09-01] MEDS: HumaLOG INSULIN (NovoLOG) PER UNIT SC SCH ×4 (07:57→20:54)
[2018-09-01] MEDS: CEFTAROLINE FOSAMIL 400 MG in D5W MINI-BAG PLUS 50 ML IV SCH (10:31)
[2018-09-01 14:00] VITALS: BP 151/69
--- NOTE | 2018-09-01 18:27 | IPNPDOC ---
Text Note Date of Service The patient was seen on 09/01/18. NOTE SUBJECTIVE: Patient is seen and examined in the room today. Patient feels he is improving with physical therapy. He denies shortness of breath. Denies any fever or chills. OBJECTIVE: VITAL SIGNS: Listed below. GENERAL: No signs of acute distress. Alert and awake. HEENT: Normocephalic, atraumatic. Extraocular muscles grossly intact. CARDIOVASCULAR: Positive S1, S2. Regular rate. LUNGS: Clear to auscultation bilaterally. ABDOMEN: Soft, nontender, nondistended. Bowel sounds present. EXTREMITIES: No edema. LABORATORY DATA: Listed below. ASSESSMENT AND PLAN: #. Left lower lobe pneumonia. - S/P course of antibiotic. Sputum culture demonstrates normal koko. However, culture was obtained few days after antibiotic. Patient had recent influenza infection. - Continue physical therapy. #. Diabetes. Levemir. On sliding scale. #. History of recent influenza infection. #. Hypertension. Blood pressure is the satisfactory range. On ramipril. #. Benign prostatic hypertrophy (BPH). On Proscar. #. Deep venous thrombosis (DVT) prophylaxis. On Lovenox. VS,Fishbone, I+O VS, Fishbone, I+O Laboratory Tests 09/01/18 05:29 Red Blood Count 3.79 L, Mean Corpuscular Volume 89.4, Mean Corpuscular Hemoglo bin 29.3, Mean Corpuscular Hemoglobin Concent 32.7, Red Cell Distribution Width 13.2, Neutrophils (%) (Auto) 63.9, Lymphocytes (%) (Auto) 14.6 L, Monocytes (%) (Auto) 17.0 H, Eosinophils (%) (Auto) 2.6, Basophils (%) (Auto) 0.4, Neutrophils # (Auto) 5.5, Lymphocytes # (Auto) 1.3 L, Monocytes # (Auto) 1.5 H, Eosinophils # (Auto) 0.2, Basophils # (Auto) 0.0, Calcium Level 8.5 L Vital Signs Date Time Temp Pulse Resp B/P (MAP) Pulse Ox O2 Delivery O2 Flow Rate FiO2 09/01/18 14:00 97.4 91 17 151/69 (96) 97 08/26/18 15:17 Room Air I&O- Last 24 Hours up to 6 AM 09/01/18 06:00 Intake Total 2050 ml Output Total 2750 ml Balance -700 ml MELODIE FERRARO DO Sep 01, 2018 18:27
[2018-09-01] MEDS: LEVEMIR (INSULIN DETEMIR) 1 UNITS/0.01ML SC SCH (20:53)
[2018-09-01] MEDS: SIMVASTATIN 40 MG TAB PO SCH (20:54)
[2018-09-01] MEDS: ASPIRIN 81 MG ENTERIC TAB PO SCH (20:54)
[2018-09-01] MEDS: BENZONATATE 100 MG CAP PO PRN (20:59)
[2018-09-01 22:00] VITALS: BP 137/64
[2018-09-02 06:00] VITALS: BP 140/67
[2018-09-02 06:38] LABS: BASO % 0.5 % (0.0-1.0); EOS # 0.2 10^3/uL (0.0-0.50); EOS % 2.8 % (0.0-3.0); HEMOGLOBIN 11.6 g/dl (13.5-17.5); LYMPH % 11.7 % (24.0-44.0); MEAN CORPUSCULAR HEMOGLOBIN 30.2 pg (27.0-33.0); MEAN CORPUSCULAR HGB CONC 33.1 g/dl (32.0-36.5); MEAN CORPUSCULAR VOLUME 91.1 fl (80.0-96.0); MONO # 1.5 10^3/uL (0.0-0.8); MONO % 16.9 % (0.0-5.0); NEUTROPHILS # 5.7 10^3/uL (1.8-7.7); NEUTROPHILS % 66.7 % (36.0-66.0); PLATELET COUNT, AUTOMATED 327 10^3/uL (150-450); RED BLOOD COUNT 3.84 10^6/uL (4.30-6.10); WHITE BLOOD COUNT 8.6 10^3/uL (4.0-10.0)
[2018-09-02 07:01] LABS: CALCIUM LEVEL 8.4 MG/DL (8.8-10.2); CREATININE FOR GFR 1.48 MG/DL (0.70-1.30); GLOMERULAR FILTRATION RATE 48.3 (>35); POTASSIUM SERUM 5.1 MEQ/L (3.5-5.1)
[2018-09-02] MEDS: ALBUTEROL SULFATE 2.5 MG/0.5 ML INH NEB SOLN INH SCH ×4 (07:15→19:02)
[2018-09-02] MEDS: ENOXAPARIN 40 MG/0.4 ML SYRINGE (J1650) SC SCH (09:16)
[2018-09-02] MEDS: RAMIPRIL 1.25 MG CAP PO SCH (09:17)
[2018-09-02] MEDS: FINASTERIDE 5 MG TAB PO SCH (09:17)
[2018-09-02] MEDS: HumaLOG INSULIN (NovoLOG) PER UNIT SC SCH ×4 (09:17→21:25)
[2018-09-02] MEDS: SENOKOT S TAB PO SCH ×2 (09:17→21:24)
[2018-09-02] MEDS: SITagliptin 50 MG TAB (JANUVIA) PO SCH (09:18)
[2018-09-02 14:00] VITALS: BP 127/60
--- NOTE | 2018-09-02 15:57 | IPNPDOC ---
Text Note Date of Service The patient was seen on 09/02/18. NOTE SUBJECTIVE: Patient is seen and examined in the room today. Patient feels his physical strength continues to improve. He denies shortness of breath. Denies any fever or chills. OBJECTIVE: VITAL SIGNS: Listed below. GENERAL: No signs of acute distress. Alert and awake. HEENT: Normocephalic, atraumatic. Extraocular muscles grossly intact. CARDIOVASCULAR: Positive S1, S2. Regular rate. LUNGS: Clear to auscultation bilaterally. ABDOMEN: Soft, nontender, nondistended. Bowel sounds present. EXTREMITIES: No edema. LABORATORY DATA: Listed below. ASSESSMENT AND PLAN: #. Left lower lobe pneumonia. - S/P course of antibiotic. Sputum culture was obtained few days after antibiotic. Sputum demonstrated normal koko. Patient had recent influenza infection. - Continue physical therapy. #. Diabetes. Levemir. On sliding scale. #. History of recent influenza infection. #. Hypertension. Blood pressure is the satisfactory range. On ramipril. #. Benign prostatic hypertrophy (BPH). On Proscar. #. Deep venous thrombosis (DVT) prophylaxis. On Lovenox. VS,Fishbone, I+O VS, Fishbone, I+O Laboratory Tests 09/02/18 06:07 Red Blood Count 3.84 L, Mean Corpuscular Volume 91.1, Mean Corpuscular Hemoglobin 30.2, Mean Corpuscular Hemoglobin Concent 33.1, Red Cell Distribution Width 13.4, Neutrophils (%) (Auto) 66.7 H, Lymphocytes (%) (Auto) 11.7 L, Monocytes (%) (Auto) 16.9 H, Eosinophils (%) (Auto) 2.8, Basophils (%) (Auto) 0.5, Neutrophils # (Auto) 5.7, Lymphocytes # (Auto) 1.0 L, Monocytes # (Auto) 1 .5 H, Eosinophils # (Auto) 0.2, Basophils # (Auto) 0.0, Calcium Level 8.4 L Vital Signs Date Time Temp Pulse Resp B/P (MAP) Pulse Ox O2 Delivery O2 Flow Rate FiO2 09/02/18 06:00 97.4 74 20 140/67 (91) 94 I&O- Last 24 Hours up to 6 AM 09/02/18 06:00 Intake Total 2450 ml Output Total 2200 ml Balance 250 ml MELODIE FERRARO DO Sep 02, 2018 15:57
[2018-09-02] MEDS: SIMVASTATIN 40 MG TAB PO SCH (21:24)
[2018-09-02] MEDS: ASPIRIN 81 MG ENTERIC TAB PO SCH (21:24)
[2018-09-02] MEDS: BENZONATATE 100 MG CAP PO PRN (21:24)
[2018-09-02] MEDS: LEVEMIR (INSULIN DETEMIR) 1 UNITS/0.01ML SC SCH (21:25)
[2018-09-02 22:00] VITALS: BP 134/62
[2018-09-03 06:00] VITALS: BP 142/73
[2018-09-03] MEDS: ALBUTEROL SULFATE 2.5 MG/0.5 ML INH NEB SOLN INH SCH ×4 (06:22→20:00)
[2018-09-03] MEDS: HumaLOG INSULIN (NovoLOG) PER UNIT SC SCH ×4 (08:04→21:00)
[2018-09-03] MEDS: ENOXAPARIN 40 MG/0.4 ML SYRINGE (J1650) SC SCH (08:04)
[2018-09-03] MEDS: RAMIPRIL 1.25 MG CAP PO SCH (08:04)
[2018-09-03] MEDS: FINASTERIDE 5 MG TAB PO SCH (08:04)
[2018-09-03] MEDS: SITagliptin 50 MG TAB (JANUVIA) PO SCH (08:05)
[2018-09-03] MEDS: SENOKOT S TAB PO SCH ×2 (08:05→21:36)
--- NOTE | 2018-09-03 12:15 | IPNPDOC ---
Text Note Date of Service The patient was seen on 09/03/18. NOTE SUBJECTIVE: Patient is seen and examined in the room today. Patient still has intermittent cough. He was able to walk around the hallway 3 times. He denies shortness of breath. Denies any fever or chills. OBJECTIVE: VITAL SIGNS: Listed below. GENERAL: No signs of acute distress. Alert and awake. HEENT: Normocephalic, atraumatic. Extraocular muscles grossly intact. CARDIOVASCULAR: Positive S1, S2. Regular rate. LUNGS: Clear to auscultation bilaterally. ABDOMEN: Soft, nontender, nondistended. Bowel sounds present. EXTREMITIES: No edema. No tenderness LABORATORY DATA: Listed below. ASSESSMENT AND PLAN: #. Left lower lobe pneumonia. - S/P course of antibiotic. Sputum culture was obtained few days after antibiotic. Sputum demonstrated normal koko. Patient had recent influenza infection. - Continue physical therapy. - Anticipate discharge in 24 hours. #. Diabetes. Levemir. On sliding scale. #. History of recent influenza infection. #. Hypertension. Blood pressure is the satisfactory range. On ramipril. #. Benign prostatic hypertrophy (BPH). On Proscar. #. Deep venous thrombosis (DVT) prophylaxis. On Lovenox. VS,Fishbone, I+O VS, Fishbone, I+O Vital Signs Date Time Temp Pulse Resp B/P (MAP) Pulse Ox O2 Delivery O2 Flow Rate FiO2 09/03/18 08:04 142/73 09/03/18 06:00 98.1 72 18 96 I&O- Last 24 Hours up to 6 AM 09/03/18 06:00 Intake Total 2060 ml Output Total 3125 ml Balance -1065 ml MELODIE FERRARO DO Sep 03, 2018 12:15
[2018-09-03 14:00] VITALS: BP 109/53
[2018-09-03] MEDS: LEVEMIR (INSULIN DETEMIR) 1 UNITS/0.01ML SC SCH (21:36)
[2018-09-03] MEDS: ASPIRIN 81 MG ENTERIC TAB PO SCH (21:36)
[2018-09-03] MEDS: SIMVASTATIN 40 MG TAB PO SCH (21:36)
[2018-09-03] MEDS: BENZONATATE 100 MG CAP PO PRN (21:39)
[2018-09-03 22:00] VITALS: BP 130/60
[2018-09-04 06:00] VITALS: BP 120/58
[2018-09-04] MEDS: ALBUTEROL SULFATE 2.5 MG/0.5 ML INH NEB SOLN INH SCH (07:18)
[2018-09-04 08:23] LABS: HEMOGLOBIN 10.9 g/dl (13.5-17.5); MEAN CORPUSCULAR HEMOGLOBIN 29.6 pg (27.0-33.0); MEAN CORPUSCULAR VOLUME 89.7 fl (80.0-96.0); PLATELET COUNT, AUTOMATED 279 10^3/uL (150-450); RED BLOOD COUNT 3.68 10^6/uL (4.30-6.10); WHITE BLOOD COUNT 7.8 10^3/uL (4.0-10.0)
[2018-09-04 08:37] LABS: CALCIUM LEVEL 8.5 MG/DL (8.8-10.2); CREATININE FOR GFR 1.44 MG/DL (0.70-1.30); GLOMERULAR FILTRATION RATE 49.9 (>35); MAGNESIUM LEVEL 1.7 MG/DL (1.8-2.4); POTASSIUM SERUM 4.7 MEQ/L (3.5-5.1)
[2018-09-04] MEDS: SENOKOT S TAB PO SCH (08:53)
[2018-09-04] MEDS: FINASTERIDE 5 MG TAB PO SCH (08:53)
[2018-09-04] MEDS: SITagliptin 50 MG TAB (JANUVIA) PO SCH (08:53)
[2018-09-04 08:54] VITALS: BP 120/58
[2018-09-04] MEDS: ENOXAPARIN 40 MG/0.4 ML SYRINGE (J1650) SC SCH (08:54)
[2018-09-04] MEDS: RAMIPRIL 1.25 MG CAP PO SCH (08:54)
[2018-09-04] MEDS: HumaLOG INSULIN (NovoLOG) PER UNIT SC SCH (08:55)
--- NOTE | 2018-09-05 17:18 | DSES ---
DATE OF ADMISSION: 08/25/2018 DATE OF DISCHARGE: 09/04/2018 PRIMARY CARE PROVIDER: Miriam Gould NP CONSULTANTS: None DISCHARGE DIAGNOSES: 1. Left lower lobe pneumonia. 2. Diabetes. 3. Recent influenza infection. 4. Hypertension. 5. BPH. HOSPITALIZATION COURSE: Patient is an 82-year-old gentleman who had a recent influenza infection and was discharged from [facility] on 08/21/2018, came to [facility] on 08/25/2018 with complaints of persistent cough and generalized weakness. Patient was admitted under hospitalist service for left lower lobe pneumonia. Patient was started on IV antibiotics. Later, sputum culture result was reviewed. Patient finished a course of antibiotics and patient continued to work with physical therapy. Patient's functional status improved gradually. On 09/04/2018, patient had returned to his functional baseline and patient is determined to be stable for discharge with recommendation to followup with primary care provider in 1-2 weeks. VITAL SIGNS: On date of discharge: Temperature 97.5, pulse 68, respiratory rate 18, blood pressure 120/58, pulse oximetry 96% in room air. LABORATORY DATA: On date of discharge: WBC 7.8, hemoglobin 10.9, hematocrit 32, platelet count 279, sodium 132, potassium 4.7, chloride 101, carbon dioxide 25, BUN 30, creatinine 1.44, GFR is 49.9, fasting glucose 170, calcium 8.5, magnesium 1.7. MICROBIOLOGY: Blood cultures from 08/25/2018 show no growth after 5 days times two sets. Sputum culture shows organism part of oral koko. Moderate amount. IMAGING STUDIES: CT of the chest without contrast on 08/25/2018 showed left lower lobe infiltrate. Stable lower lobe lung nodules. Cholelithiasis. DISCHARGE MEDICATIONS: - Tylenol 1000 mg by mouth every 6 hours as needed - aspirin 81 mg by mouth nightly - Tessalon Perles 100 mg by mouth three times a day - finasteride 5 mg by mouth daily - Mucinex 600 mg by mouth twice a day - insulin Humalog mix 75/25 30 units subcutaneous daily - Humalog 70/25 one dose subcutaneous every evening - lovastatin 40 mg by mouth nightly - magnesium oxide 400 mg by mouth twice a day - multivitamin one tablet by mouth daily - omega 3 two tablets by mouth daily - ramipril 2.5 mg by mouth daily - Januvia 50 mg by mouth daily DISCHARGE INSTRUCTIONS: Discontinue lines. Discharge home. Activity as tolerated. Low salt diet as tolerated. Patient should followup with primary care provider in 1-2 weeks. DISCHARGE CONDITION: Fair. DISCHARGE TIME: Greater than 30 minutes.
== END 2018-09-04 11:51 | disposition home health service (06) | DRG 178 ==
LOC: M ED 14:49 → EDBD 14:49 → M ED INP 20:02 → M MSPAV 08-26 15:20
PROVIDERS: ADMIT Internal Medicine Nephrology; ATTEND Internal Medicine
DX: J15.20 Pneumonia due to staphylococcus, unspecified (principal); E87.1 Hypo-osmolality and hyponatremia; I13.10 Hypertensive heart and chronic kidney disease without heart failure, with stage 1 through stage 4 chronic kidney disease, or unspecified chronic kidney disease; E11.9 Type 2 diabetes mellitus without complications; N40.0 Benign prostatic hyperplasia without lower urinary tract symptoms; Z79.899 Other long term (current) drug therapy; Z79.82 Long term (current) use of aspirin; N18.3 Chronic kidney disease, stage 3 (moderate); E78.5 Hyperlipidemia, unspecified

== ENCOUNTER → 2018-10-10 | Outpatient (REF) | payer MEDICARE, OTHER ==
[~2018-10-10] MED LIST changes: +ACET-683 PO; +ASPI81TA26 PO; +FURO20TA2 PO; -MAGN1TAB25 PO; +MAGN1TAB26 PO; +MUCI600T31 PO; +TESS100C PO
[2018-10-10 17:34] LABS: HEMOGLOBIN A1c 8.1 %
== END ==
LOC: M SFHCPLAZ 13:47
PROVIDERS: ATTEND Nurse Practitioner Adult Health
DX: E11.9 Type 2 diabetes mellitus without complications (principal)
CPT/HCPCS: 36415; 83036; G0463

== ENCOUNTER → 2019-01-12 | Outpatient (CLI) | payer MEDICARE, OTHER ==
[2019-01-13 14:09] LABS: PSA TOTAL 1.4 ng/mL (0.0-4.0)
== END ==
LOC: M WUC 09:55
PROVIDERS: ATTEND Urology
DX: N40.1 Benign prostatic hyperplasia with lower urinary tract symptoms (principal); R97.20 Elevated prostate specific antigen [PSA]

== ENCOUNTER → 2019-04-11 | Outpatient (REF) | payer MEDICARE, OTHER ==
[2019-04-11 13:57] LABS: HEMATOCRIT 41.5 % (42.0-52.0); HEMOGLOBIN 13.4 g/dl (13.5-17.5); MEAN CORPUSCULAR HEMOGLOBIN 30.5 pg (27.0-33.0); MEAN CORPUSCULAR HGB CONC 32.3 g/dl (32.0-36.5); MEAN CORPUSCULAR VOLUME 94.5 fl (80.0-96.0); PLATELET COUNT, AUTOMATED 209 10^3/uL (150-450); RED BLOOD COUNT 4.39 10^6/uL (4.30-6.10); WHITE BLOOD COUNT 6.6 10^3/uL (4.0-10.0)
[2019-04-11 14:08] LABS: ALBUMIN 3.3 GM/DL (3.2-5.2); BILIRUBIN,TOTAL 0.7 MG/DL (0.2-1.0); CALCIUM LEVEL 9.4 MG/DL (8.8-10.2); CHOLESTEROL RISK RATIO 3.16 (<5); CREATININE FOR GFR 1.74 MG/DL (0.70-1.30); TOTAL PROTEIN 7.1 GM/DL (6.4-8.2)
[2019-04-11 14:11] LABS: TOTAL 25(OH) VITAMIN D 31.9 NG/ML (30.0-100.0)
[2019-04-11 14:13] LABS: MALB URINE SIEMENS 16.7 MG/L; MAU/CREAT RATIO 10.4 MCG/MG (0.0-30.0)
[2019-04-11 14:46] LABS: HEMOGLOBIN A1c 7.1 %
== END ==
LOC: M SFHCPLAZ 11:00
PROVIDERS: ATTEND Nurse Practitioner Adult Health
DX: E11.9 Type 2 diabetes mellitus without complications (principal); E78.00 Pure hypercholesterolemia, unspecified; E55.9 Vitamin D deficiency, unspecified
CPT/HCPCS: 36415; 80053; 80061; 82043; 82306; 83036; 85027; 90682; G0008

== ENCOUNTER → 2019-05-09 | Outpatient (CLI) | payer MEDICARE, OTHER ==
--- NOTE | 2019-05-09 13:38 | REP ---
ULTRASOUND RIGHT MANDIBULAR SOFT TISSUES: Ultrasound right mandibular soft tissues performed at the site of a palpable lump. At this location there is a solid mass which measures 3.1 x 1.7 x 3.1 cm. Mild tiny cystic components are also seen within the mass. Blood flow is seen in the periphery of the mass with duplex Doppler evaluation. IMPRESSION: Nonspecific solid mass at the site of the reported palpable lump in the right mandibular soft tissues. Electronically Signed by Rehan White MD 05/10/2019 11:21 A
== END ==
LOC: M RAD 09:45
PROVIDERS: ATTEND Dermatology
DX: D49.2 Neoplasm of unspecified behavior of bone, soft tissue, and skin (principal)

== ENCOUNTER → 2019-05-16 | Outpatient (CLI) | payer MEDICARE, OTHER ==
[~2019-05-16] MED LIST changes: +ISOVUE-370 76% 100ML VIAL (Q9967) As Ordered ONE
--- NOTE | 2019-05-21 09:30 | REP ---
CT face: 05/16/2019. Indication: Facial soft tissue mass. Technique: Axial images of the facial soft tissues / bones were obtained following IV administration of 75 ml Isovue 370. Findings: There is a 3.2 x 3.2 x 2 point 3 cm heterogeneously attenuating/enhancing mass within the right facial soft tissues just lateral to the platysmas muscle but appears to be contiguous with the dermis and may represent a sebaceous cyst. There is a small area of calcification within the mass. There is no additional abnormal solid soft tissue mass. No abnormal fluid collections are present. The paranasal sinuses and mastoid air cells are clear. No significant acute ocular, intraorbital or intracranial abnormalities are detected. Intracranial atherosclerotic disease is noted most pronounced within the left V4 segment. Impression: Right facial soft tissue mass as described possibly representing a sebaceous cyst. Excision/tissue sampling is recommended. Electronically Signed by Denilson Zamarripa DO 05/21/2019 09:21 A
== END ==
LOC: M RAD 17:56
PROVIDERS: ATTEND Dermatology
DX: R22.0 Localized swelling, mass and lump, head (principal)
CPT/HCPCS: 70487; Q9967

== ENCOUNTER → 2019-06-06 | Outpatient (CLI) | payer MEDICARE, OTHER ==
[~2019-06-06] MED LIST changes: -ISOVUE-370 76% 100ML VIAL (Q9967) As Ordered ONE
[2019-06-06 16:45] LABS: CREATININE FOR GFR 1.63 MG/DL (0.70-1.30); GLOMERULAR FILTRATION RATE 43.1 (>35)
== END ==
LOC: M WUC 13:27
PROVIDERS: ATTEND Otolaryngology
DX: C49.0 Malignant neoplasm of connective and soft tissue of head, face and neck (principal)

== ENCOUNTER → 2019-06-08 | Outpatient (CLI) | payer MEDICARE, OTHER ==
[~2019-06-08] MED LIST changes: +ISOVUE-370 76% 100ML VIAL (Q9967) As Ordered ONE
--- NOTE | 2019-06-08 15:43 | REP ---
CT neck soft tissues: 06/08/2019. Indication: Soft tissue neoplasm. Comparison: 05/16/2019. Technique: Axial images of the neck soft tissues were obtained following IV administration of 75 ml Isovue 370. Coronal and sagittal reconstructions were provided. Findings: The recently described right perimandibular/submandibular soft tissue mass has significantly decreased in size. There is no cervical lymphadenopathy. The study is otherwise unchanged. No new solid soft tissue masses or abnormal fluid collections are present. Impression: Significantly reduced size of the right perimandibular/submandibular soft tissue mass external to the platysmas muscle. This may represent scarring from excision, however, residual neoplasm is not excluded. There is no cervical lymphadenopathy. Electronically Signed by Denilson Zamarripa DO 06/08/2019 03:35 P
== END ==
LOC: M RAD 14:17
PROVIDERS: ATTEND Otolaryngology
DX: C49.0 Malignant neoplasm of connective and soft tissue of head, face and neck (principal)
CPT/HCPCS: 70491; Q9967

== ENCOUNTER 2019-08-23 08:04 | Day surgery (SDC) | payer MEDICARE, OTHER ==
[~2019-08-23] VITALS: Ht 177.8 cm; Wt 104.2 kg
[~2019-08-23 08:04] MED LIST changes: +FLON1SPR NARES; -ISOVUE-370 76% 100ML VIAL (Q9967) As Ordered ONE; +LR 1,000 ML IV ONE; +VITA500C24 PO; +VITAD1000T PO; +dexameTHASONE 4 MG/ML 1ML VIAL (J1100) IV ONE
[2019-08-23] MEDS ORDERED: ROCURONIUM BROMIDE 50 MG/5 ML VIAL As Ordered ONE ×2 (09:40→12:05)
[2019-08-23] MEDS ORDERED: LIDOCAINE 2% INJ 100 MG/5 ML SDV (FOR ANES.) As Ordered ONE (09:40)
[2019-08-23] MEDS ORDERED: dexameTHASONE 4 MG/ML 1ML VIAL (J1100) As Ordered ONE (09:40)
[2019-08-23] MEDS ORDERED: ONDANSETRON 4MG/2ML VIAL (J2405) As Ordered ONE (09:40)
[2019-08-23] MEDS ORDERED: propofoL 200 MG/20 ML VIAL As Ordered ONE (09:40)
[2019-08-23] MEDS ORDERED: fentaNYL 250 MCG/5 ML INJECTION (J3010) As Ordered ONE (09:41)
[2019-08-23] MEDS ORDERED: MIDAZOLAM INJ 2 MG/2 ML VIAL (J2250) As Ordered ONE (09:41)
[2019-08-23] MEDS ORDERED: SUGAMMADEX SODIUM 500 MG/5 ML VIAL (BRIDION) As Ordered ONE ×2 (09:45→12:02)
[2019-08-23] MEDS ORDERED: LIDOCAINE W/EPINEPHRINE 1% 20ML VIAL As Ordered ONE (10:04)
[2019-08-23] MEDS ORDERED: ePHEDrine SULFATE 25 MG/5 ML(5MG/ML) SYRINGE As Ordered ONE ×2 (10:55→11:35)
[2019-08-23] MEDS ORDERED: ACETAMINOPHEN 1000MG 100ML IV BTL (OFIRMEV) (J0131 PER 10MG) As Ordered ONE (11:17)
[2019-08-23] MEDS ORDERED: BACITRACIN OINT 30GM As Ordered ONE (12:02)
[2019-08-23] MEDS ORDERED: ONDANSETRON 4MG/2ML VIAL (J2405) IV PRN (13:00)
[2019-08-23] MEDS ORDERED: LR 1,000 ML IV SCH ×2 (13:00)
[2019-08-23] MEDS ORDERED: PERCOCET 5MG/325MG TAB PO PRN (13:00)
[2019-08-23] MEDS ORDERED: fentaNYL 100 MCG/2 ML INJECTION (J3010) IV PRN (13:00)
[2019-08-23 14:20] VITALS: BP 143/66
--- NOTE | 2019-08-27 12:59 | RO ---
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 POSTOPERATIVE DIAGNOSIS: Pilomatrix carcinoma right mandibular area. PROCEDURE PERFORMED: Excision of the pilomatrix carcinoma from the right mandibular area, 5 cm x 5.5 cm. SURGEON: [place] MD TICK ERADICATOR: ANESTHESIA: General. CLINICAL PREAMBLE: This 83-year-old man had a biopsy done by his trombone slide assembler of a lesion overlying he right mandibular area with pathology indicating pilomatrix carcinoma. Management options including completion excision of the lesion have been discussed with the patient. He understood and consented to the procedure. OR NARRATION: The patient was identified in preop holding and had the right face marked. He was brought to the operating room in stable condition. In supine position on the operating room table, the patient received general anesthesia followed by orotracheal intubation without incident. The patient was prepped and draped in the usual fashion for the procedure. The mass was palpated over the right angle of the mandible. The proposed excision site was outlined with at least 1 cm margins around the lesion. Total area excised was 5 cm x 5.5 cm. Excision was then carried down to the level of the platysmal muscle. The entire specimen was excised en bloc including the subcutaneous fibrofatty tissue. There was no evidence of invasion of the tumor to the underlying muscles. Hemostasis was achieved using bipolar electrocautery. The skin was then closed in two layers. #3-0 Vicryl was used to reapproximate the deep layer. The final skin closure was achieved using #4-0 Prolene suture. The incision was then dressed with the bacitracin ointment followed by application of Telfa dressing. At the end of the procedure, sponge and instrument counts were correct. No complications were encountered. Estimated blood loss was approximately 1 mL. General anesthesia was reversed and the patient was extubated and brought to the recovery room in stable condition.
== END 2019-08-23 14:28 | disposition home or self-care (01) ==
LOC: M SDC 08:04
PROVIDERS: ATTEND Otolaryngology
DX: C44.390 Other specified malignant neoplasm of skin of unspecified parts of face (principal); I12.9 Hypertensive chronic kidney disease with stage 1 through stage 4 chronic kidney disease, or unspecified chronic kidney disease; N18.3 Chronic kidney disease, stage 3 (moderate); E11.9 Type 2 diabetes mellitus without complications; E78.5 Hyperlipidemia, unspecified; N40.0 Benign prostatic hyperplasia without lower urinary tract symptoms; M51.26 Other intervertebral disc displacement, lumbar region; M54.30 Sciatica, unspecified side; R91.1 Solitary pulmonary nodule; M48.061 Spinal stenosis, lumbar region without neurogenic claudication; Z79.899 Other long term (current) drug therapy; Z79.4 Long term (current) use of insulin; Z79.82 Long term (current) use of aspirin
CPT/HCPCS: 11646; 12055; 88305; J0131; J1100; J2250; J2405; J3010

== ENCOUNTER → 2020-01-30 | Outpatient (REF) | payer MEDICARE, OTHER ==
[~2020-01-30] MED LIST changes: +ASPI-546 PO; -ASPI1TAB15 PO; +D31000TA2 PO; -LR 1,000 ML IV ONE; -VITAD1000T PO; -dexameTHASONE 4 MG/ML 1ML VIAL (J1100) IV ONE
[2020-03-16 11:22] LABS: BILIRUBIN,TOTAL 0.4 MG/DL (0.2-1.0); CALCIUM LEVEL 9.9 MG/DL (8.8-10.2); CREATININE FOR GFR 1.76 MG/DL (0.70-1.30); GLOMERULAR FILTRATION RATE 39.4 (>35); POTASSIUM SERUM 4.5 MEQ/L (3.5-5.1)
[2020-03-16 11:23] LABS: ALBUMIN 3.6 GM/DL (3.2-5.2); CHOLESTEROL RISK RATIO 3.651 (<5); MALB URINE SIEMENS 7.8 MG/L; TOTAL 25(OH) VITAMIN D 21.7 NG/ML (30.0-100.0); TOTAL PROTEIN 7.2 GM/DL (6.4-8.2)
== END ==
LOC: M LABWUC 11:33
PROVIDERS: ATTEND Nurse Practitioner Adult Health
DX: E11.9 Type 2 diabetes mellitus without complications (principal); E55.9 Vitamin D deficiency, unspecified; E78.5 Hyperlipidemia, unspecified; Z79.4 Long term (current) use of insulin; Z79.899 Other long term (current) drug therapy

== ENCOUNTER → 2020-01-30 | Outpatient (REF) | payer MEDICARE, OTHER | LOC: M LABWUC 11:35 | PROVIDERS: ATTEND Nurse Practitioner Women's Health | DX: Z12.5 Encounter for screening for malignant neoplasm of prostate (principal) ==

== ENCOUNTER → 2020-07-24 | Outpatient (CLI) | payer MEDICARE, OTHER ==
[2020-07-24 21:24] LABS: HEMATOCRIT 42.2 % (42.0-52.0); HEMOGLOBIN 13.2 g/dl (13.5-17.5); MEAN CORPUSCULAR HEMOGLOBIN 30.4 pg (27.0-33.0); MEAN CORPUSCULAR HGB CONC 31.3 g/dl (32.0-36.5); MEAN CORPUSCULAR VOLUME 97.2 fl (80.0-96.0); PLATELET COUNT, AUTOMATED 193 10^3/uL (150-450); RED BLOOD COUNT 4.34 10^6/uL (4.30-6.10); WHITE BLOOD COUNT 7.6 10^3/uL (4.0-10.0)
[2020-07-24 21:38] LABS: ALBUMIN 3.3 GM/DL (3.2-5.2); BILIRUBIN,TOTAL 0.4 MG/DL (0.2-1.0); CALCIUM LEVEL 9.5 MG/DL (8.8-10.2); CHOLESTEROL RISK RATIO 4.195 (<5); CREATININE FOR GFR 1.74 MG/DL (0.70-1.30); GLOMERULAR FILTRATION RATE 39.9 (>35); POTASSIUM SERUM 4.6 MEQ/L (3.5-5.1); THYROID STIMULATING HORMONE 3.25 uIU/ML (0.358-3.740); TOTAL PROTEIN 6.7 GM/DL (6.4-8.2)
[2020-07-24 22:00] LABS: MALB URINE SIEMENS 24.6 MG/L; MAU/CREAT RATIO 10.5 MCG/MG (0.0-30.0)
== END ==
LOC: M WUC 14:56
PROVIDERS: ATTEND Nurse Practitioner Adult Health
DX: E55.9 Vitamin D deficiency, unspecified (principal); E11.9 Type 2 diabetes mellitus without complications; E78.00 Pure hypercholesterolemia, unspecified

== ENCOUNTER → 2021-02-24 | Outpatient (CLI) | payer MEDICARE, OTHER ==
[2021-02-24 16:06] LABS: ALBUMIN 3.2 GM/DL (3.2-5.2); BILIRUBIN,TOTAL 0.6 MG/DL (0.2-1.0); CALCIUM LEVEL 9.2 MG/DL (8.8-10.2); CHOLESTEROL RISK RATIO 3.238 (<5); CREATININE FOR GFR 1.81 MG/DL (0.70-1.30); MAGNESIUM LEVEL 2.2 MG/DL (1.8-2.4); POTASSIUM SERUM 4.8 MEQ/L (3.5-5.1); TOTAL PROTEIN 6.9 GM/DL (6.4-8.2)
[2021-02-24 16:13] LABS: TOTAL 25(OH) VITAMIN D 28.5 NG/ML (30.0-100.0)
[2021-02-24 16:23] LABS: HEMOGLOBIN A1c 7.2 %
[2021-02-24 16:35] LABS: MALB URINE SIEMENS 9.5 MG/L; MAU/CREAT RATIO 7.2 MCG/MG (0.0-30.0)
== END ==
LOC: M WUC 11:07
PROVIDERS: ATTEND Nurse Practitioner Adult Health
DX: E78.00 Pure hypercholesterolemia, unspecified (principal); E11.9 Type 2 diabetes mellitus without complications; E55.9 Vitamin D deficiency, unspecified; Z79.899 Other long term (current) drug therapy

== ENCOUNTER → 2021-04-20 | Outpatient (REF) | payer MEDICARE, OTHER | LOC: M LAB REF 17:25 | PROVIDERS: ATTEND Internal Medicine Nephrology | DX: E83.42 Hypomagnesemia (principal) ==

== ENCOUNTER → 2021-07-30 | Outpatient (CLI) | payer MEDICARE, OTHER ==
[2021-07-30 17:06] LABS: MALB URINE SIEMENS 12.5 MG/L; MAU/CREAT RATIO 7.7 MCG/MG (0.0-30.0)
[2021-07-30 17:15] LABS: ALBUMIN 3.3 GM/DL (3.2-5.2); BILIRUBIN,TOTAL 0.5 MG/DL (0.2-1.0); CALCIUM LEVEL 9.4 MG/DL (8.8-10.2); CHOLESTEROL RISK RATIO 4.102 (<5); CREATININE FOR GFR 1.79 MG/DL (0.70-1.30); GLOMERULAR FILTRATION RATE 38.5 (>35); POTASSIUM SERUM 5.1 MEQ/L (3.5-5.1); THYROID STIMULATING HORMONE 3.52 uIU/ML (0.358-3.740); TOTAL 25(OH) VITAMIN D 27.8 NG/ML (30.0-100.0); TOTAL PROTEIN 6.9 GM/DL (6.4-8.2)
[2021-07-30 18:16] LABS: HEMOGLOBIN A1c 7.3 %
== END ==
LOC: M WUC 14:13
PROVIDERS: ATTEND Nurse Practitioner Adult Health
DX: Z00.00 Encounter for general adult medical examination without abnormal findings (principal); E11.9 Type 2 diabetes mellitus without complications; E78.00 Pure hypercholesterolemia, unspecified; E55.9 Vitamin D deficiency, unspecified; Z79.899 Other long term (current) drug therapy

== ENCOUNTER → 2021-12-27 | Outpatient (REF) | payer MEDICARE, OTHER ==
[~2021-12-27] MED LIST changes: -D31000TA2 PO; +VITA100093 PO
== END ==
LOC: M WUC 17:11
PROVIDERS: ATTEND Student in an Organized Health Care Education/Training Program
DX: R30.0 Dysuria (principal)

== ENCOUNTER → 2022-01-21 | Outpatient (REF) | payer MEDICARE, OTHER ==
[~2022-01-21] MED LIST changes: +FISH10005 PO; -FISH7.5C PO
[2022-01-21 14:11] LABS: APPEARANCE, URINE CLEAR (CLEAR); BACTERIA, URINE AUTO NEGATIVE (NEGATIVE); BILIRUBIN, URINE AUTO NEGATIVE (NEGATIVE); BLOOD, URINE BLOOD NEGATIVE (NEGATIVE); COLOR, URINE YELLOW (YELLOW); GLUCOSE, URINE (UA) AUTO NEGATIVE (NEGATIVE); KETONE, URINE AUTO NEGATIVE (NEGATIVE); LEUKOCYTE ESTERASE, URINE AUTO NEGATIVE (NEGATIVE); NITRITE, URINE AUTO NEGATIVE (NEGATIVE); PROTEIN, URINE AUTO NEGATIVE (NEGATIVE); RBC, URINE AUTO 1 /HPF (0-3); SQUAMOUS EPITHELIAL CELL UR AU 1 /HPF (0-6); UROBILINOGEN, URINE AUTO 0.2 mg/dL (0.0-2.0); WBC, URINE AUTO 1 /HPF (0-3)
== END ==
LOC: M SMT 12:57
PROVIDERS: ATTEND Nurse Practitioner Women's Health
DX: N39.0 Urinary tract infection, site not specified (principal)

== ENCOUNTER → 2022-02-17 | Outpatient (CLI) | payer MEDICARE, OTHER | LOC: M WUC 11:37 | PROVIDERS: ATTEND Nurse Practitioner Adult Health | DX: E55.9 Vitamin D deficiency, unspecified (principal); E11.9 Type 2 diabetes mellitus without complications; E78.00 Pure hypercholesterolemia, unspecified ==

== ENCOUNTER → 2022-03-09 | Outpatient (CLI) | payer MEDICARE, OTHER ==
[2022-03-09 12:53] LABS: HEMOGLOBIN A1c 7.3 %
[2022-03-09 13:10] LABS: ALBUMIN 3.2 GM/DL (3.2-5.2); BILIRUBIN,TOTAL 0.7 MG/DL (0.2-1.0); CALCIUM LEVEL 9.8 MG/DL (8.8-10.2); CHOLESTEROL RISK RATIO 2.816 (<5); CREATININE FOR GFR 1.52 MG/DL (0.70-1.30); GLOMERULAR FILTRATION RATE 46.4 (>35); MAGNESIUM LEVEL 2.1 MG/DL (1.8-2.4); POTASSIUM SERUM 4.8 MEQ/L (3.5-5.1); TOTAL PROTEIN 7.2 GM/DL (6.4-8.2)
[2022-03-09 13:22] LABS: CREATININE, URINE 61.8 MG/DL; MALB URINE SIEMENS 5.6 MG/L
[2022-03-09 13:45] LABS: TOTAL 25(OH) VITAMIN D 29.3 NG/ML (30.0-100.0)
== END ==
LOC: M WUC 10:43
PROVIDERS: ATTEND Nurse Practitioner Adult Health
DX: E55.9 Vitamin D deficiency, unspecified (principal); E11.9 Type 2 diabetes mellitus without complications; E78.00 Pure hypercholesterolemia, unspecified; Z79.899 Other long term (current) drug therapy

== ENCOUNTER 2022-05-11 12:17 | Emergency (ER) | payer MEDICARE, OTHER ==
[~2022-05-11] VITALS: Ht 177.8 cm; Wt 225.0 kg
[2022-05-11 13:35] LABS: BASO # 0.1 10^3/uL (0.0-0.2); BASO % 0.5 % (0.0-1.0); EOS # 0.1 10^3/uL (0.0-0.5); EOS % 0.5 % (0.0-3.0); HEMATOCRIT 39.1 % (42.0-52.0); HEMOGLOBIN 12.6 g/dl (13.5-17.5); LYMPH # 1.3 10^3/uL (1.5-5.0); LYMPH % 10.3 % (24.0-44.0); MEAN CORPUSCULAR HEMOGLOBIN 30.3 pg (27.0-33.0); MEAN CORPUSCULAR HGB CONC 32.2 g/dl (32.0-36.5); MONO % 15.2 % (2.0-8.0); NEUTROPHILS # 9.2 10^3/uL (1.5-8.5); NEUTROPHILS % 72.9 % (36.0-66.0); PLATELET COUNT, AUTOMATED 196 10^3/uL (150-450); RED BLOOD COUNT 4.16 10^6/uL (4.30-6.10); WHITE BLOOD COUNT 12.6 10^3/uL (4.0-10.0)
[2022-05-11 14:07] LABS: RSV AMPLIFICATION NEGATIVE (NEGATIVE)
[2022-05-11 14:23] LABS: MONO # 1.9 10^3/uL (0.0-0.8)
[2022-05-11 14:24] LABS: BILIRUBIN,DIRECT 0.6 MG/DL (<0.4); BILIRUBIN,TOTAL 0.9 MG/DL (0.3-1.2); CALCIUM LEVEL 8.9 MG/DL (8.3-10.6); CK-MB VALUE MASS 1.8 NG/ML (<3.6); CREATININE FOR GFR 1.68 MG/DL (0.70-1.30); GLOMERULAR FILTRATION RATE 41.4 (>35); MB/CK RELATIVE INDEX 0.49 (< OR =4); POTASSIUM SERUM 4.2 MMOL/L (3.5-5.1); THYROID STIMULATING HORMONE 2.707 uIU/ML (0.55-4.78); TOTAL PROTEIN 7.1 G/DL (5.7-8.2)
[2022-05-11 16:45] VITALS: BP 152/76
== END 2022-05-11 17:14 | disposition short-term general hospital (02) ==
LOC: EDBD 12:17 → M ED 12:17
DX: S06.5X0A Traumatic subdural hemorrhage without loss of consciousness, initial encounter (principal); W01.198A Fall on same level from slipping, tripping and stumbling with subsequent striking against other object, initial encounter; I44.4 Left anterior fascicular block; I49.3 Ventricular premature depolarization; E11.9 Type 2 diabetes mellitus without complications; I10 Essential (primary) hypertension; N18.9 Chronic kidney disease, unspecified; M54.30 Sciatica, unspecified side; Z79.4 Long term (current) use of insulin; Z79.899 Other long term (current) drug therapy

== ENCOUNTER → 2022-05-27 | Outpatient (CLI) | payer MEDICARE, OTHER | LOC: M PLARAD 09:13 | DX: M50.20 Other cervical disc displacement, unspecified cervical region (principal); M43.02 Spondylolysis, cervical region; M48.02 Spinal stenosis, cervical region; M54.6 Pain in thoracic spine ==

== ENCOUNTER → 2023-01-07 | Outpatient (CLI) | payer MEDICARE, OTHER ==
[2023-01-07 16:11] LABS: BASO % 0.3 % (0.0-1.0); EOS # 1.2 10^3/uL (0.0-0.5); HEMATOCRIT 37.9 % (42.0-52.0); HEMOGLOBIN 12.4 g/dl (13.5-17.5); LYMPH # 1.3 10^3/uL (1.5-5.0); LYMPH % 14.1 % (24.0-44.0); MEAN CORPUSCULAR HEMOGLOBIN 30.3 pg (27.0-33.0); MEAN CORPUSCULAR HGB CONC 32.7 g/dl (32.0-36.5); MEAN CORPUSCULAR VOLUME 92.7 fl (80.0-96.0); MONO # 1.2 10^3/uL (0.0-0.8); MONO % 13.1 % (2.0-8.0); NEUTROPHILS # 5.4 10^3/uL (1.5-8.5); NEUTROPHILS % 59.3 % (36.0-66.0); PLATELET COUNT, AUTOMATED 239 10^3/uL (150-450); RED BLOOD COUNT 4.09 10^6/uL (4.30-6.10); WHITE BLOOD COUNT 9.1 10^3/uL (4.0-10.0)
[2023-01-07 16:39] LABS: ALBUMIN 3.3 G/DL (3.2-5.2); ALKALINE PHOSPHATASE 71 U/L (46-116); ALT/SGPT 11 U/L (7.0-40); AST/SGOT 12 U/L (<34); BILIRUBIN,TOTAL 0.5 MG/DL (0.3-1.2); BLOOD UREA NITROGEN 32 MG/DL (9-23); CALCIUM LEVEL 9.5 MG/DL (8.3-10.6); CARBON DIOXIDE LEVEL 27 MMOL/L (20-31); CHLORIDE LEVEL 104 MMOL/L (98-107); CREATININE FOR GFR 1.59 MG/DL (0.70-1.30); GLUCOSE, FASTING 204 MG/DL (74-106); SODIUM LEVEL 136 MMOL/L (136-145); TOTAL PROTEIN 6.9 G/DL (5.7-8.2)
[2023-01-07 17:07] LABS: HIV 1&2 SCREEN NEGATIVE (NEGATIVE)
[2023-01-07 17:14] LABS: HEPATITIS B CORE ANTIBODY IGM NEGATIVE (NEGATIVE); HEPATITIS C VIRUS ABY INDEX 0.09 INDEX (<0.8)
== END ==
LOC: M LAB 15:42
PROVIDERS: ATTEND Nurse Practitioner Family
DX: R21 Rash and other nonspecific skin eruption (principal)

== ENCOUNTER → 2023-01-07 | Outpatient (REF) | payer MEDICARE, OTHER | LOC: M SFHCWOUN 17:33 | PROVIDERS: ATTEND Physician Assistant | DX: L90.5 Scar conditions and fibrosis of skin (principal) ==

== ENCOUNTER → 2023-01-18 | Outpatient (REF) | payer MEDICARE, OTHER ==
[2023-01-18 18:39] LABS: HEMOGLOBIN A1c 8.2 % (4.0-6.0)
== END ==
LOC: M SFHCPLAZ 16:23
PROVIDERS: ATTEND Nurse Practitioner Adult Health
DX: E11.9 Type 2 diabetes mellitus without complications (principal)

== ENCOUNTER → 2023-06-01 | Outpatient (REF) | payer MEDICARE, OTHER ==
[2023-06-01 12:22] LABS: HEMATOCRIT 41.5 % (42.0-52.0); HEMOGLOBIN 13.6 g/dl (13.5-17.5); MEAN CORPUSCULAR HEMOGLOBIN 31.8 pg (27.0-33.0); MEAN CORPUSCULAR HGB CONC 32.8 g/dl (32.0-36.5); PLATELET COUNT, AUTOMATED 183 10^3/uL (150-450); RED BLOOD COUNT 4.28 10^6/uL (4.30-6.10); WHITE BLOOD COUNT 4.8 10^3/uL (4.0-10.0)
[2023-06-01 12:38] LABS: HEMOGLOBIN A1c 8.7 % (4.0-6.0)
[2023-06-01 13:00] LABS: ALBUMIN 2.9 G/DL (3.2-5.2); BILIRUBIN,TOTAL 0.7 MG/DL (0.3-1.2); CALCIUM LEVEL 9.4 MG/DL (8.3-10.6); CHOLESTEROL RISK RATIO 3.23 (<5); CREATININE FOR GFR 1.44 MG/DL (0.70-1.30); FERRITIN 40.5 NG/ML (10.5-307.3); GLOMERULAR FILTRATION RATE 49.3 (>35); HDL CHOLESTEROL 45.1 MG/DL (>40); LDL CHOLESTEROL 82.9 MG/DL (<100); NON-HDL-C 100.9 MG/DL; POTASSIUM SERUM 4.8 MMOL/L (3.5-5.1)
== END ==
LOC: M LABWUC 09:26
PROVIDERS: ATTEND Nurse Practitioner Adult Health
DX: E11.9 Type 2 diabetes mellitus without complications (principal)

== ENCOUNTER → 2023-10-20 | Outpatient (CLI) | payer MEDICARE, OTHER ==
[~2023-10-20] MED LIST changes: -RAMI1CAP22 PO; +RAMI2.5C42 PO
[2023-10-20 16:21] LABS: HEMOGLOBIN A1c 7.4 % (4.0-6.0)
== END ==
LOC: M PLALAB 12:21
PROVIDERS: ATTEND Nurse Practitioner Adult Health
DX: E11.9 Type 2 diabetes mellitus without complications (principal)

== ENCOUNTER 2023-12-18 10:05 | Observation (INO) | payer MEDICARE, OTHER ==
[~2023-12-18] VITALS: Ht 177.8 cm; Wt 93.2 kg
[2023-12-18] MEDS: NS 500 ML IV ONE (12:43)
[2023-12-18 12:45] LABS: VENOUS BASE EXCESS -2.5 (-2.0-2.0); VENOUS HCO3 22.9 MMOL/L (23.0-27.0); VENOUS O2 SATURATION 61.5 % (60.0-80.0); VENOUS PARTIAL PRESSURE CO2 41.9 mmHg (38.0-50.0); VENOUS PARTIAL PRESSURE O2 32.8 mmHg (30.0-50.0); VENOUS PH 7.356 UNITS (7.330-7.430); VENOUS STANDARD HCO3 21.6 MMOL/L; VENOUS TOTAL CO2 24.2 MMOL/L (24.0-28.0)
[2023-12-18 12:50] LABS: BASO % 0.4 % (0.0-1.0); EOS # 0.6 10^3/uL (0.0-0.5); EOS % 5.9 % (0.0-3.0); HEMATOCRIT 39.5 % (42.0-52.0); LYMPH # 0.8 10^3/uL (1.5-5.0); LYMPH % 7.4 % (24.0-44.0); MEAN CORPUSCULAR HEMOGLOBIN 30.8 pg (27.0-33.0); MEAN CORPUSCULAR HGB CONC 32.9 g/dl (32.0-36.5); MEAN CORPUSCULAR VOLUME 93.6 fl (80.0-96.0); MONO # 0.9 10^3/uL (0.0-0.8); MONO % 8.8 % (2.0-8.0); NEUTROPHILS # 7.9 10^3/uL (1.5-8.5); PLATELET COUNT, AUTOMATED 159 10^3/uL (150-450); RED BLOOD COUNT 4.22 10^6/uL (4.30-6.10); WHITE BLOOD COUNT 10.3 10^3/uL (4.0-10.0)
[2023-12-18 13:02] LABS: INR 1.07; PARTIAL THROMBOPLASTIN TIME 23.4 SECONDS (24.8-34.2); PROTHROMBIN TIME 13.6 SECONDS (12.5-14.5)
[2023-12-18] MEDS: NS 1,000 ML IV ONE (13:10)
[2023-12-18 13:17] LABS: CALCIUM LEVEL 9.2 MG/DL (8.3-10.6); CK-MB VALUE MASS 2.2 NG/ML (<3.6); CREATININE FOR GFR 1.3 MG/DL (0.70-1.30); GLOMERULAR FILTRATION RATE 55.3 (>35); MAGNESIUM LEVEL 1.8 MG/DL (1.8-2.4); MB/CK RELATIVE INDEX 2.55 (< OR =4); POTASSIUM SERUM 4.5 MMOL/L (3.5-5.1)
[2023-12-18 13:19] LABS: FREE T4 1.07 NG/DL (0.89-1.76); THYROID STIMULATING HORMONE 7.27 uIU/ML (0.55-4.78)
[2023-12-18 14:24] LABS: CK-MB VALUE MASS 2.2 NG/ML (<3.6)
[2023-12-18 14:38] LABS: MB/CK RELATIVE INDEX 2.22 (< OR =4)
[2023-12-18] MEDS ORDERED: ACETAMINOPHEN TAB 650MG DOSE (2X325MG) PO PRN (15:25)
[2023-12-18] MEDS ORDERED: CVS1CAP PO (16:12)
[2023-12-18] MEDS ORDERED: DAPA5TAB4 PO (16:12)
[2023-12-18] MEDS ORDERED: DUPI300I SC (16:12)
[2023-12-18] MEDS ORDERED: GLIM1TAB84 PO (16:12)
[2023-12-18] MEDS ORDERED: LANTINJ4 SC (16:12)
[2023-12-18] MEDS ORDERED: AUGM0.05 TOP (16:12)
[2023-12-18] MEDS ORDERED: NIAC500T29 PO (16:12)
[2023-12-18] MEDS ORDERED: HOME MED LIST COMPLETE! XX SCH (16:15)
[2023-12-18 16:30] VITALS: BP 131/63; TEMP 97.3; O2SAT 95
[2023-12-18] MEDS: INSULIN LISPRO (NovoLOG) PER UNIT SC SCH ×2 (17:12→20:10)
[2023-12-18 19:42] VITALS: BP 122/60; TEMP 97.5; O2SAT 96
[2023-12-18] MEDS: OMEGA-3 1000MG CAPSULE PO SCH (20:14)
[2023-12-18] MEDS: MAGNESIUM OXIDE 400MG TAB (MAG-OX) PO SCH (20:15)
[2023-12-18] MEDS: HEPARIN SOD (PORCINE) 5000UNITS/ML 1ML VIAL/SYRINGE SQ SCH (20:15)
[2023-12-18] MEDS: SIMVASTATIN 20 MG TAB PO SCH (20:15)
[2023-12-18 22:28] LABS: CK-MB VALUE MASS 2.2 NG/ML (<3.6)
[2023-12-18 22:35] LABS: MB/CK RELATIVE INDEX 1.77 (< OR =4)
[2023-12-19 03:44] VITALS: BP 161/63; TEMP 97.3; O2SAT 95
[2023-12-19 03:54] VITALS: BP 133/73; TEMP 97.3; O2SAT 97
[2023-12-19 06:06] LABS: HEMATOCRIT 38.9 % (42.0-52.0); HEMOGLOBIN 12.9 g/dl (13.5-17.5); MEAN CORPUSCULAR HGB CONC 33.2 g/dl (32.0-36.5); MEAN CORPUSCULAR VOLUME 93.5 fl (80.0-96.0); PLATELET COUNT, AUTOMATED 156 10^3/uL (150-450); RED BLOOD COUNT 4.16 10^6/uL (4.30-6.10); WHITE BLOOD COUNT 6.9 10^3/uL (4.0-10.0)
[2023-12-19 06:32] LABS: CK-MB VALUE MASS 1.4 NG/ML (<3.6)
[2023-12-19 06:33] LABS: ALBUMIN 2.7 G/DL (3.2-5.2); ALKALINE PHOSPHATASE 86 U/L (46-116); ALT/SGPT 14 U/L (7.0-40); AST/SGOT 15 U/L (<34); BLOOD UREA NITROGEN 29 MG/DL (9-23); CALCIUM LEVEL 8.8 MG/DL (8.3-10.6); CARBON DIOXIDE LEVEL 26 MMOL/L (20-31); CHLORIDE LEVEL 108 MMOL/L (98-107); CREATININE FOR GFR 1.14 MG/DL (0.70-1.30); GLOMERULAR FILTRATION RATE > 60.0 (>35); GLUCOSE, FASTING 146 MG/DL (74-106); POTASSIUM SERUM 4.7 MMOL/L (3.5-5.1); SODIUM LEVEL 138 MMOL/L (136-145); TOTAL PROTEIN 5.4 G/DL (5.7-8.2)
[2023-12-19 06:34] LABS: MB/CK RELATIVE INDEX 1.38 (< OR =4)
[2023-12-19] MEDS: LEVEMIR (INSULIN DETEMIR) 1 UNITS/0.01ML SC SCH (09:36)
[2023-12-19] MEDS: ramipriL 1.25 MG CAP PO SCH (09:38)
[2023-12-19] MEDS: MULTIVITAMINS/MINERALS THERAP 1 TAB PO SCH (09:39)
[2023-12-19] MEDS: OMEGA-3 1000MG CAPSULE PO SCH (09:39)
[2023-12-19] MEDS: FINASTERIDE 5MG TAB PO SCH (09:39)
[2023-12-19] MEDS: VITAMIN D 1,000 INTERNATIONAL UNITS TABLET PO SCH (09:39)
[2023-12-19] MEDS: ASCORBIC ACID 500 MG TAB PO SCH (09:39)
[2023-12-19 12:00] VITALS: BP 131/63; TEMP 97.3; O2SAT 97
[2023-12-19 12:55] LABS: MAGNESIUM LEVEL 1.8 MG/DL (1.8-2.4); PHOSPHORUS LEVEL 3.5 MG/DL (2.4-5.1)
[2023-12-19 20:11] VITALS: BP 126/57; TEMP 97.3; O2SAT 96; O2SAT 97
[2023-12-19] MEDS: SENNA 8.6 MG TAB (SENOKOT) PO PRN (21:49)
[2023-12-20 03:50] VITALS: BP 124/61; TEMP 97.2; O2SAT 98
[2023-12-20 06:48] LABS: HEMATOCRIT 38.4 % (42.0-52.0); HEMOGLOBIN 12.6 g/dl (13.5-17.5); MEAN CORPUSCULAR HEMOGLOBIN 30.7 pg (27.0-33.0); MEAN CORPUSCULAR HGB CONC 32.8 g/dl (32.0-36.5); MEAN CORPUSCULAR VOLUME 93.7 fl (80.0-96.0); PLATELET COUNT, AUTOMATED 144 10^3/uL (150-450); WHITE BLOOD COUNT 7.5 10^3/uL (4.0-10.0)
[2023-12-20 07:09] LABS: ALBUMIN 2.8 G/DL (3.2-5.2); ALKALINE PHOSPHATASE 87 U/L (46-116); ALT/SGPT 13 U/L (7.0-40); AST/SGOT 13 U/L (<34); BILIRUBIN,TOTAL 0.9 MG/DL (0.3-1.2); BLOOD UREA NITROGEN 28 MG/DL (9-23); CALCIUM LEVEL 9.1 MG/DL (8.3-10.6); CARBON DIOXIDE LEVEL 26 MMOL/L (20-31); CHLORIDE LEVEL 105 MMOL/L (98-107); GLOMERULAR FILTRATION RATE > 60.0 (>35); GLUCOSE, FASTING 138 MG/DL (74-106); POTASSIUM SERUM 4.5 MMOL/L (3.5-5.1); SODIUM LEVEL 136 MMOL/L (136-145); TOTAL PROTEIN 5.6 G/DL (5.7-8.2)
[2023-12-20 10:00] VITALS: BP 117/60
[2023-12-20 10:05] VITALS: BP 117/54
[2023-12-20 10:10] VITALS: BP 125/68
[2023-12-20 12:00] VITALS: BP 125/61; TEMP 97.2; O2SAT 97
[2023-12-20 20:27] VITALS: BP 128/59; TEMP 97.5; O2SAT 97
[2023-12-21 03:47] VITALS: BP 136/65; TEMP 97.3; O2SAT 95
[2023-12-21 08:18] VITALS: BP 130/65
[2023-12-21 12:00] VITALS: BP 122/63; TEMP 97.3; O2SAT 98
== END 2023-12-21 14:07 | disposition home health service (06) ==
LOC: EDBD 10:05 → M ED 10:05 → M ED INP 15:24 → EEVIPCON 15:24 → INTOOBSV 15:24 → M MSPAV 16:23
PROVIDERS: ADMIT Internal Medicine; ATTEND Internal Medicine
DX: I95.1 Orthostatic hypotension (principal); S09.90XA Unspecified injury of head, initial encounter; W18.2XXA Fall in (into) shower or empty bathtub, initial encounter; Y92.22 Religious institution as the place of occurrence of the external cause; R79.89 Other specified abnormal findings of blood chemistry; I50.30 Unspecified diastolic (congestive) heart failure; E78.5 Hyperlipidemia, unspecified; I12.9 Hypertensive chronic kidney disease with stage 1 through stage 4 chronic kidney disease, or unspecified chronic kidney disease; N18.30 Chronic kidney disease, stage 3 unspecified; E11.9 Type 2 diabetes mellitus without complications; N40.0 Benign prostatic hyperplasia without lower urinary tract symptoms; R91.1 Solitary pulmonary nodule; L12.0 Bullous pemphigoid; Z79.899 Other long term (current) drug therapy; Z79.4 Long term (current) use of insulin; Z88.5 Allergy status to narcotic agent; M51.36 Other intervertebral disc degeneration, lumbar region
CPT/HCPCS: 36415; 70450; 70486; 71045; 72125; 80048; 80053; 81001; 82550; 82553; 82803; 83605; 83735; 84100; 84439; 84443; 84484; 85025; 85027; 85610; 85730; 93005; 93041; 93306; 94760; 96372; 96374; 96376; 97116; 97161; 97165; 97530; 97535; 99285; G0378; J1815

== ENCOUNTER → 2024-05-02 | Outpatient (REF) | payer MEDICARE, OTHER ==
[~2024-05-02] MED LIST changes: +AUGM0.0511 TOP; +CVS1CAP PO; +DAPA5TAB4 PO; +DUPI300I SC; +GLIM1TAB84 PO; +LANTINJ4 SC; +NIAC500T29 PO
[2024-05-02 18:05] LABS: ALBUMIN 3.1 G/DL (3.2-5.2); BILIRUBIN,TOTAL 0.5 MG/DL (0.3-1.2); CALCIUM LEVEL 9.4 MG/DL (8.3-10.6); CREATININE FOR GFR 1.41 MG/DL (0.70-1.30); GLOMERULAR FILTRATION RATE 50.4 (>35); POTASSIUM SERUM 4.8 MMOL/L (3.5-5.1); TOTAL PROTEIN 6.6 G/DL (5.7-8.2)
[2024-05-02 18:33] LABS: HEMOGLOBIN A1c 8.2 % (4.0-6.0)
== END ==
LOC: M SFHCPLAZ 14:28
PROVIDERS: ATTEND Nurse Practitioner Adult Health
DX: E11.9 Type 2 diabetes mellitus without complications (principal)

== ENCOUNTER → 2024-08-07 | Outpatient (CLI) | payer MEDICARE, OTHER ==
[2024-08-07 14:22] LABS: HEMATOCRIT 48.5 % (42.0-52.0); HEMOGLOBIN 15.3 g/dl (13.5-17.5); MEAN CORPUSCULAR HEMOGLOBIN 30.1 pg (27.0-33.0); MEAN CORPUSCULAR HGB CONC 31.5 g/dl (32.0-36.5); MEAN CORPUSCULAR VOLUME 95.5 fl (80.0-96.0); PLATELET COUNT, AUTOMATED 182 10^3/uL (150-450); RED BLOOD COUNT 5.08 10^6/uL (4.30-6.10); WHITE BLOOD COUNT 8.1 10^3/uL (4.0-10.0)
[2024-08-07 14:25] LABS: FERRITIN 26.5 NG/ML (10.5-307.3)
[2024-08-07 14:26] LABS: ALBUMIN 3.1 G/DL (3.2-5.2); BILIRUBIN,TOTAL 0.7 MG/DL (0.3-1.2); CALCIUM LEVEL 9.8 MG/DL (8.3-10.6); CHOLESTEROL RISK RATIO 2.54 (<5); CREATININE FOR GFR 1.38 MG/DL (0.70-1.30); GLOMERULAR FILTRATION RATE 51.6 (>35); HDL CHOLESTEROL 61.4 MG/DL (>40); LDL CHOLESTEROL 76.8 MG/DL (<100); MAGNESIUM LEVEL 1.9 MG/DL (1.8-2.4); NON-HDL-C 94.6 MG/DL; POTASSIUM SERUM 4.7 MMOL/L (3.5-5.1); TOTAL PROTEIN 6.8 G/DL (5.7-8.2)
[2024-08-07 14:37] LABS: HEMOGLOBIN A1c 7.6 % (4.0-6.0)
[2024-08-09 13:07] LABS: QuantiFERON-TB Gold Plus NEGATIVE (NEGATIVE)
== END ==
LOC: M PLALAB 11:11
PROVIDERS: ATTEND Nurse Practitioner Adult Health
DX: E11.9 Type 2 diabetes mellitus without complications (principal); E55.9 Vitamin D deficiency, unspecified